=== PATIENT | female | born 1945 | race Caucasian/White ===

== ENCOUNTER 2021-05-29 10:01 | Outpatient (CLI) | payer MEDICARE, SELFPAY ==
--- NOTE | ~2021-05-29 | XR_ITS ---
EXAMINATION: XR chest 2V DATE: 05/29/2021 10:38 INDICATION: Scoliosis. TECHNIQUE: Frontal and lateral views of the chest were obtained. COMPARISON: None. FINDINGS: There is mild scarring at left lung apex. No pleural effusion or pneumothorax. The heart si ze is normal. There is a prominent right paracardial fat pad. There is 4 degrees levocurvature of tho racic spine. There is thoracic kyphosis and severe spondylosis. IMPRESSION: 1. Mild scarring at left lung apex. Reviewed, dictated and finalized at location B.
[2021-05-29 10:42] LABS: Basophils Percent Auto 0.6 % (0.2-1.2); Eosinophils Absolute Auto 0.2 K/mm3 (0-0.3); Hematocrit 42.4 % (37.0-47.0); Hemoglobin 13.7 g/dL (12.0-15.0); Immature Granulocyte Absolute 0.02 K/mm3 (0.00-0.031); Immature Granulocyte Percent A 0.3 % (0-0.5); Lymphocytes Absolute Auto 1.07 K/mm3 (0.9-3.2); Mean Corpuscular HGB Conc 32.3 g/dl (32-36); Mean Corpuscular Hemoglobin 29.3 pg (26-34); Mean Corpuscular Volume 90.6 fl (80-100); Monocytes Absolute Auto 0.5 K/mm3 (0.1-0.6); Monocytes Percent Auto 6.9 % (2.6-8.5); Neutrophils Absolute Auto 4.9 K/mm3 (1.3-6.7); Neutrophils Percent Auto 73.2 % (45.5-73.1); Platelet Count Result 237 k/mm3 (150-375); Red Blood Count 4.68 M/mm3 (4.2-5.4); White Blood Count 6.7 K/mm3 (4.5-10.0)
[2021-05-29 10:47] LABS: Add Urine Microscopic? YES; Appearance Urine Cloudy (Clear); Bilirubin Urine Negative (Negative); Blood Urine Negative (Negative); Color Urine Yellow (Yellow); Glucose Urine UA Negative (Negative); Ketones Urine Negative (Negative); Leukocyte Esterase Ur 2+ LEU/UL (Negative); Mucus Urine Few /lpf; Nitrate Urine Negative (Negative); Protein Urine 1+ mg/dL (Negative); Specific Grav Ur 1.023 (1.001-1.035); Squamous Epithelial Cell Urine Rare /hpf (Few); Urobilinogen Urine Negative mg/dL (<2.0)
[2021-05-29 10:53] LABS: Alanine Aminotransferase 38 U/L (4-35); Albumin Level 4.7 g/dL (3.5-5.1); Alkaline Phosphatase 86 U/L (38-126); Anion Gap 8 mmol/L (8-16); Aspartate Amino Transferase 44 U/L (14-36); Bilirubin,Total 0.6 mg/dL (0.2-1.3); Blood Urea Nitrogen 26 mg/dL (7-17); Calcium 9.4 mg/dL (8.4-10.2); Carbon Dioxide 28 mmol/L (22-30); Chloride 104 mmol/L (98-107); Cholesterol 193 mg/dL (0-200); Estimated Glomerular Filt Rate > 60; Glucose 105 mg/dL (65-110); HDL Direct 52 mg/dL; Potassium 4.5 mmol/L (3.4-5.0); Sodium 140 mmol/L (137-145); Triglycerides 130 mg/dL (<150)
[2021-05-29 11:04] LABS: LDL Cholesterol Direct 95 mg/dL
[2021-05-29 11:14] LABS: Hemoglobin A1C 5.7 % (<5.7)
[2021-05-29 11:24] LABS: Thyroid Stimulating Hormone 0.785 uIU/mL (0.465-4.680)
[2021-05-29 11:27] LABS: Vitamin D 25 Hydroxy 73.3 ng/mL
[2021-05-29 12:01] LABS: Folic Acid > 20.0 ng/mL (2.76->20)
[2021-06-03 12:55] LABS: Vitamin B1 41 nmol/L (8-30)
[2021-06-03 15:11] LABS: Vitamin B6 23.1 ng/mL (2.1-21.7)
[2021-06-03 23:36] LABS: Vitamin B2 10.2 nmol/L (6.2-39.0)
== END 2021-05-29 10:02 | disposition home or self-care (01) ==
PROVIDERS: PCP Internal Medicine; Visit Provider Internal Medicine
DX: M41.9 Scoliosis, unspecified (principal); Z13.29 Encounter for screening for other suspected endocrine disorder; Z79.899 Other long term (current) drug therapy; E53.8 Deficiency of other specified B group vitamins; E78.2 Mixed hyperlipidemia; Z13.1 Encounter for screening for diabetes mellitus; E55.9 Vitamin D deficiency, unspecified; R91.8 Other nonspecific abnormal finding of lung field
CPT/HCPCS: 36415; 71046; 80053; 80061; 81001; 82306; 82607; 82746; 83036; 84207; 84252; 84425; 84439; 84443; 85025

== ENCOUNTER 2021-06-03 09:58 | Outpatient (CLI) | payer MEDICARE, SELFPAY ==
[2021-06-03 11:08] LABS: Add Urine Microscopic? YES; Appearance Urine Clear (Clear); Bilirubin Urine Negative (Negative); Blood Urine Negative (Negative); Color Urine Yellow (Yellow); Glucose Urine UA Negative (Negative); Ketones Urine Negative (Negative); Leukocyte Esterase Ur Trace LEU/UL (Negative); Mucus Urine Few /lpf; Nitrate Urine Negative (Negative); Protein Urine Negative (Negative); RBC Urine 0-2 /hpf (0-2); Specific Grav Ur 1.024 (1.001-1.035); Squamous Epithelial Cell Urine Rare /hpf (Few); WBC Urine 0-3 /hpf
== END 2021-06-03 09:59 | disposition home or self-care (01) ==
LOC: ANHLAB 10:01
PROVIDERS: PCP Internal Medicine; Visit Provider Internal Medicine
DX: R82.90 Unspecified abnormal findings in urine (principal)
CPT/HCPCS: 81001

== ENCOUNTER 2021-06-26 09:21 | Outpatient (CLI) | payer MEDICARE, SELFPAY ==
[2021-06-26 10:05] LABS: Add Urine Microscopic? YES; Appearance Urine Clear (Clear); Bilirubin Urine 1+ (Negative); Blood Urine Negative (Negative); Color Urine Yellow (Yellow); Glucose Urine UA Negative (Negative); Ketones Urine Trace mg/dL (Negative); Leukocyte Esterase Ur Negative LEU/UL (Negative); Nitrate Urine Negative (Negative); Protein Urine Trace mg/dL (Negative); Specific Grav Ur >= 1.030 (1.001-1.035); Urobilinogen Urine 0.2 mg/dL (<2.0); pH Urine 5.5 (5.0-9.0)
[2021-06-26 10:24] LABS: Bacteria Urine Trace /hpf; Mucus Urine Moderate /lpf; Squamous Epithelial Cell Urine Rare /hpf (Few); WBC Urine 0-3 /hpf
== END 2021-06-26 09:22 | disposition home or self-care (01) ==
PROVIDERS: PCP Internal Medicine; Visit Provider Internal Medicine
DX: R30.0 Dysuria (principal); R82.90 Unspecified abnormal findings in urine
CPT/HCPCS: 81001; 87086

== ENCOUNTER 2021-06-29 07:21 | Outpatient (CLI) | payer MEDICARE, SELFPAY ==
--- NOTE | 2021-06-26 16:24 | PC.NURSE ---
Attempted pre-call x1 with message to call [employer] phone number back & npo after midnight tuesday and can take all medications with sip of water prior to coming to the front of the hospital.
[2021-06-26 16:39] VITALS: BMI 24.0
[2021-06-29] VITALS (12 sets, daily range): BP systolic 99–141; BP diastolic 54–75; PULSE 48–61; RESP 14–19; TEMP 36.3; O2SAT 91–97; BMI 21.2
--- NOTE | 2021-06-29 | ECHO_ITS ---
Patient Info Name: Swati Smtih Age: 76 years : 1945 Gender: Female Ht: 65 in Wt: 149 lbs BSA: 1.77 m2 HR: 57 bpm Heart Rhythm: Sinus Rhythm Technical Quality: Good Exam Date: 06/29/2021 8:28 AM Exam Location: [facility] Patient Status: Outpatient Admit Date: 06/29/2021 Staff Ordering Physician: Xavi Gonzalez MD [employer] Representative: Michelle Iraheta RDCS Attending Provider: Xavi Gonzalez MD Referring Physician: Lisa LAW; Exam Type: CA echo transesophageal Study Info Indications - MVR Complete two-dimensional, color flow and Doppler transesophageal study is performed. Summary 1. Somewhat thickened posterior mitral valve leaflet with mild annular calcium. 2. Very small amount of mitral regurgitation. 3. Mild aortic valve sclerosis with no functional stenosis planimetry valve area 2.2 cm2. 4. Normal left ventricular size and systolic function. 5. Dilated left atrium. Left Ventricle Left ventricular chamber dimension is normal. Left ventricular systolic function is normal with an ejection fraction by Biplane Method of Discs of Empty. Right Ventricle Right ventricular chamber dimension is normal. Left Atria Left atrial chamber dimension is moderately enlarged. Right Atria Right atrial chamber dimension is normal. Aortic Valve The aortic valve is trileaflet. There is mild aortic valve sclerosis. There is no aortic valve stenosis. Pulmonic Valve The pulmonic valve is normal. Mitral Valve The mitral valve has thickened leaflets. There is trace mitral valve regurgitation. Tricuspid Valve The tricuspid valve leaflets are normal. Pericardium/Pleural The pericardium appears normal. Inferior Vena Cava Not well visualized inferior vena cava with Empty collapse upon inspiration consistent with Empty right atrial pressure, Empty. Aorta The aortic root size at the sinus of Valsalva is normal. Report Signatures
--- NOTE | 2021-06-29 10:10 | SUR.PHASEII ---
discharge instruction reviewed with pt and son. Verbalized understanding, pt escorted off floor via w/c.
== END 2021-06-29 10:18 | disposition home or self-care (01) ==
LOC: ANHCPCTRAN 07:22
PROVIDERS: PCP Internal Medicine; Visit Provider Internal Medicine Cardiovascular Disease
PROC: (CPT 93312; principal; 2021-06-29 08:30)
DX: I05.9 Rheumatic mitral valve disease, unspecified (principal); I35.8 Other nonrheumatic aortic valve disorders
CPT/HCPCS: 93312; 93320; 93325; J2250; J3010

== ENCOUNTER 2021-07-13 14:57 | Outpatient (CLI) | payer MEDICARE, SELFPAY ==
--- NOTE | ~2021-07-13 | XR_ITS ---
XR chest 2V 07/13/2021 15:17 Indication: Cough and congestion Procedure: 2 view chest Comparison: 05/29/2021 Findings: Heart size normal. There is left basilar atelectasis/scarring. No focal air space disease, pulmonary edema, pleural effusion or suspected pneumothorax. No acute osseous abnormality. Impression: 1: No acute cardiopulmonary disease. Reviewed, dictated and finalized at location B. Impression: 1: No acute cardiopulmonary disease.
== END 2021-07-13 14:58 | disposition home or self-care (01) ==
LOC: ANHIMG 15:03
PROVIDERS: PCP Internal Medicine; Visit Provider Internal Medicine
DX: R05.9 Cough, unspecified (principal)
CPT/HCPCS: 71046

== ENCOUNTER → 2021-07-14 07:12 | Outpatient (CLI) | payer MEDICARE, SELFPAY ==
[2021-07-14 11:07] LABS: Influenza A QL RT-PCR Negative (Negative); Influenza B QL RT-PCR Negative (Negative); SARS-CoV-2 RNA PCR Negative
== END ==
PROVIDERS: PCP Internal Medicine; Visit Provider Internal Medicine
DX: J02.9 Acute pharyngitis, unspecified (principal); R05.8 Other specified cough; R53.83 Other fatigue; Z20.822 Contact with and (suspected) exposure to COVID-19
CPT/HCPCS: 87502; C9803; U0003; U0005

== ENCOUNTER 2021-09-11 07:42 | Outpatient (CLI) | payer MEDICARE, SELFPAY ==
--- NOTE | ~2021-09-11 | DEXA_ITS ---
Bone Density Report Name: MEAGAN SKINNER Age: 76 Sex: Female Ethnicity: White Date of : 1945 Indication: postmenopausal; screening for osteoporosis; parental hip fracture; height loss; Referring Provider: SUNNY OLEARY Study: Bone densitometry was performed. Exam Date: September 11, 2021 Accession number: [id number] Bone Density: Region BMD T-score Z-score Classification AP Spine(L1-L4) 1.002 -0.4 2.1 Normal Femoral Neck (Left) 0.681 -1.5 0.7 Osteopenia Total Hip (Left) 0.750 -1.6 0.3 Osteopenia Femoral Neck (Right) 0.696 -1.4 0.8 Osteopenia Total Hip (Right) 0.794 -1.2 0.7 Osteopenia Total Hip Mean 0.772 -1.4 0.5 Osteopenia World Health Organization criteria for BMD impression classify patients as: Normal (T-score at or above -1.0), Osteopenia (T-score between -1.0 and -2.5), or Osteoporosis (T-score at or below -2.5). 10-year Fracture Risk: FRAX not reported because: Treated for osteoporosis Clinical Information Provided by Patient: Parent has had a hip fracture Is being treated for osteoporosis Has used the following medications: Fosamax (i.e. alendronate), Vitamin D Patient maximum height was 67 Menopause Age: 34 Does not regularly consume dairy products Onset of menses at age 12 Number of children 2 Impression: The patient has low bone mass, based on the Left Total Hip T-score. The patient has risk factors, including: parental hip fracture. Discussion: It is important to ask patients whether they are taking their medications and to encourage continued and appropriate compliance with their osteoporosis therapies to reduce fracture risk. It is also important to review their risk factors and encourage appropriate calcium and vitamin D intakes, exercise, fall prevention and other lifestyle measures. Follow-Up: Consider a repeat BMD and Vertebral Fracture Assessment (VFA) exam in 2 years or sooner if medically necessary, to reassess this patient's status. Reported by: ILIANA on 09/11/2021 8:29:00 AM. Reviewed, dictated and finalized at location AHussain PA
--- NOTE | ~2021-09-11 | MM_ITS ---
EXAMINATION: MM screening chelle BI w anabel HISTORY: Screening TECHNIQUE: Craniocaudal and mediolateral oblique 3-D tomosynthesis images were obtained and synthetic 2-D images were generated. CAD analysis was submitted and interpreted. COMPARISON: No prior mammogram is available for comparison at this institution. BREAST PARENCHYMAL COMPOSITION: There are scattered areas of fibroglandular density. FINDINGS: There are focal asymmetries in the upper central aspect of the left breast. There are asymm etries in the outer aspect of the right breast on CC view. IMPRESSION: 1. Bilateral breast asymmetries. 2. Comparison to previous outside mammograms recommended. BI-RADS Category 0: Incomplete: Needs additional imaging evaluation. Reviewed, dictated and finalized at location A.
== END 2021-09-11 07:43 | disposition home or self-care (01) ==
PROVIDERS: PCP Internal Medicine; Visit Provider Internal Medicine
DX: Z12.31 Encounter for screening mammogram for malignant neoplasm of breast (principal); M85.89 Other specified disorders of bone density and structure, multiple sites; Z78.0 Asymptomatic menopausal state
CPT/HCPCS: 77063; 77067; 77080

== ENCOUNTER 2021-09-14 10:01 | Outpatient (CLI) | payer MEDICARE, SELFPAY ==
--- NOTE | 2021-09-14 13:05 | WPDPFTINT ---
PFT Procedure Performed PFT Procedure Performed Spirometry with Pre/Post Bronchodilator Plethysmography (Lung Vol) Diffusing Cap (DLCO) Flow Vol Loop PFT Interpretation Lung volumes were measured with the body plethysmography method. Lung volumes are unremarkable. Spirometry showed normal expiratory flow rates and a normal FEV1 to FVC ratio 0f 71%. Following administration of a bronchodilator, there was no significant change in the expiratory flow rates. Lung diffusion capacity is within the normal range at 90% predicted. The flow volume loop is unremarkable. Impression: Spirometry, lung volumes, and lung diffusion capacity all within the normal range.
== END 2021-09-14 10:02 | disposition home or self-care (01) ==
PROVIDERS: PCP Internal Medicine; Visit Provider Internal Medicine
DX: R05.8 Other specified cough (principal); R06.02 Shortness of breath; R05.3 Chronic cough
CPT/HCPCS: 94060; 94726; 94729

== ENCOUNTER 2021-09-17 09:40 | Outpatient (CLI) | payer MEDICARE, SELFPAY ==
[2021-09-17 11:08] LABS: Vitamin D 25 Hydroxy 94.4 ng/mL
== END 2021-09-17 09:41 | disposition home or self-care (01) ==
LOC: ANHLAB 09:45
PROVIDERS: PCP Internal Medicine; Visit Provider Internal Medicine
DX: M85.80 Other specified disorders of bone density and structure, unspecified site (principal)
CPT/HCPCS: 36415; 82306

== ENCOUNTER 2021-09-28 12:15 | Outpatient (CLI) | payer MEDICARE, SELFPAY ==
--- NOTE | ~2021-09-28 | MMUS_ITS ---
EXAMINATION: MM diagnostic chelle BI w anabel, US breast BI complete HISTORY: Follow-up breast asymmetries TECHNIQUE: Additional 3-D tomosynthesis images of the breasts were performed and synthetic 2-D images were generated. CAD analysis was submitted and interpreted. High resolution right and left complete breast ultrasound was performed. COMPARISON: 09/11/2021 BREAST PARENCHYMAL COMPOSITION: Breast composed of scattered areas of fibroglandular density FINDINGS: MAMMOGRAPHIC FINDINGS: There are persistent asymmetries laterally in the right breast on cc view and centrally in the left b reast on CC view, not definitely confirmed on MLO or mediolateral views. ULTRASOUND: Complete bilateral US of all 4 quadrants of the breasts and retroareolar region was reviewed. Right breast: At 12:00, 1 cm from the nipple, there is an oval hypoechoic mass with parallel orientat ion, no significant posterior features and no internal vascularity measuring 8 x 6 x 3 mm. At 10:00, 2 cm from the nipple there is a 6 mm cyst. Left breast ultrasound: At 12:00, 1 cm from the nipple, there is an 8 mm cyst. At 12:00, 1 cm from th e nipple there is a 5 mm cyst. IMPRESSION: 1. Probable benign complicated cysts of the right breast at 12:00, 1 cm from the nipple measuring 8 m m. No evidence for malignancy in the left breast. 2. Recommend 6 month follow-up Limited right breast ultrasound BI-RADS category 3, probably benign findings. Reviewed, dictated and finalized at location A. IMPRESSION: 1. Probable benign complicated cysts of the right breast at 12:00, 1 cm from th e nipple measuring 8 mm. No evidence for malignancy in the left breast. 2. Recommend 6 month follow-up Limited right breast ultrasound BI-RADS category 3, probably benign findings.
== END 2021-09-28 12:16 | disposition home or self-care (01) ==
PROVIDERS: PCP Internal Medicine; Visit Provider Internal Medicine
DX: R92.8 Other abnormal and inconclusive findings on diagnostic imaging of breast (principal)
CPT/HCPCS: 76641; 77062; 77066; G0279

== ENCOUNTER 2021-10-15 11:22 | Day surgery (SDC) | payer MEDICARE, SELFPAY ==
[2021-10-02 09:44] VITALS: BMI 23.8
[2021-10-15 11:45] VITALS: BMI 21.9
[2021-10-15 12:14] VITALS: BP 118/61; PULSE 76; RESP 16; TEMP 37.1; O2SAT 100
--- NOTE | 2021-10-15 12:16 | WPDANESEPPF ---
Anes - Initial Pre Proc Eval Procedure: Operation Date: 10/15/21 13:00 Proposed Procedures p Screening Colonoscopy - Senthil Lares MD Date/Time: 10/15/21 12:16 Surgeon: Senthil Lares MD Pre Op Diagnosis: History of colon polyps, family hx of colon cancer Patient Data Age: 76 Gender: F Height: 1.68 m Weight: 61.8 kg Last Vital Signs Temp 37.1 C 10/15/21 12:14 Pulse 76 10/15/21 12:14 Resp 16 10/15/21 12:14 BP 118/61 10/15/21 12:14 Pulse Ox 100 10/15/21 12:14 O2 Del Method Room Air 10/15/21 12:14 Allergies Allergy/AdvReac Type Severity Reaction Status Date / Time No Known Allergies Allergy Verified 10/15/21 11:44 Home Medications Medication Instructions Recorded Confirmed Type valacyclovir 500 mg tablet 500 mg PO BID PRN viral infection 05/29/21 10/15/21 History alendronate 70 mg tablet 70 mg PO WEEKLY #12 tabs 06/26/21 10/15/21 Rx sertraline 50 mg tablet 50 mg PO DAILY #90 tabs 06/26/21 10/15/21 Rx sodium sul 1.479 gram-potas ch See Rx Instructions PO PER PKG DIR 07/15/21 10/01/21 Rx 0.188 gram-magnes sul 0.225 gram #24 tabs tablet (Sutab) atorvastatin 40 mg tablet See Rx Instructions .Route 09/03/21 10/15/21 Rx .COMPLEX #100 tabs cholecalciferol (vitamin D3) 50 50 mcg PO DAILY 09/17/21 10/15/21 History mcg (2,000 unit) capsule Patient hx anesthesia problems: none Family hx anesthesia problems: none Results Review: All pre-operative results and documents have been reviewed as part of the pre-operative evaluation. 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 clerk drug therapy Orthostatic hypotension Osteoporosis Post-menopausal Scoliosis SOB (shortness of breath) Sore throat Vitamin D deficiency Family History Family History Mother Lymphoma Carcinoma of colon Father Heart disease Hyperlipidemia Social History Social History Smoking status: Never smoker Tobacco type: cigarettes Second hand tobacco smoke exposure: No Additional smoking assessment comments: Very remote Hx of smoking Alcohol intake: never Substance use: never Substance use type: does not use Living arrangements: alone Gender identity (if verbalized by the patient): Female 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ns: No Anes - Eval Final PreProcedure Day of Procedure 10/15/21 12:16 Patient weight: normal Heart: regular rate and rhythm Lungs: clear to auscultation Airway: Mallampati scale class II Last oral intake: >/= 8 hours ASA classification: II Emergent: no Anesthetic plan: proceed Anesthesia type and monitoring: general GIVS and standard monitoring Results Review: All pre-operative results and documents have been reviewed as part of the pre-operative evaluation. Informed Consent: The patient's anesthetic plan and its attendant risks and benefits were discussed with the patient/family/POA. Questions were solicited and answers provided to the satisfaction of the patient/family/POA.
[2021-10-15] MEDS: LACTATED RINGERS 1,000 ML 150 ML IV CONT (12:17)
--- NOTE | 2021-10-15 12:17 | PM.IMHP ---
H&P: HPI History of Present Illness Date/Time: 10/15/21 12:17 Chief Complaint: History of colon polyps. Narrative: This is a 76-year-old white female patient presents for neoplasia screening colonoscopy. Patient's family history is significant for colon polyps. Patient has a history of adenomatous colon polyp by previous colonoscopy 2016. Patient denies abdominal pain. She has had no bleeding. Current bowel habits are normal. She presents today for neoplasia screening. Review of Systems Review of Systems: Review of systems noncontributory. [facility] Past Medical History Medical History (Updated 09/30/21 @ 10:26 by Masha Goldsmith CMA) Abnormal urinalysis Anxiety Aortic stenosis, mild BMI 24.0-24.9, adult BPPV (benign paroxysmal positional vertigo) Chest pressure Colon cancer screening DJD (degenerative joint disease), multiple sites MCQUEEN (dyspnea on exertion) Dry cough Elevated LFTs Encounter for Medicare annual wellness exam Encounter to establish care FHx: colon cancer Follow up Genital herpes Hx of colonic polyps Hyperlipidemia Mitral valve prolapse Mitral valve regurgitation On group home drug therapy Orthostatic hypotension Osteoporosis Post-menopausal Scoliosis SOB (shortness of breath) Sore throat Vitamin D deficiency Family History Family History Mother Lymphoma Carcinoma of colon Father Heart disease Hyperlipidemia Social History Social History Smoking status: Never smoker Tobacco type: cigarettes Second hand tobacco smoke exposure: No Additional smoking assessment comments: Very remote Hx of smoking Alcohol intake: never Substance use: never Substance use type: does not use Living arrangements: alone Gender identity (if verbalized by the patient): Female 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ns: No Meds Home Medications and Allergies Home Medications Medication Instructions Recorded Confirmed Type valacyclovir 500 mg tablet 500 mg PO BID PRN viral infection 05/29/21 10/15/21 History alendronate 70 mg tablet 70 mg PO WEEKLY #12 tabs 06/26/21 10/15/21 Rx sertraline 50 mg tablet 50 mg PO DAILY #90 tabs 06/26/21 10/15/21 Rx sodium sul 1.479 gram-potas ch See Rx Instructions PO PER PKG DIR 07/15/21 10/01/21 Rx 0.188 gram-magnes sul 0.225 gram #24 tabs tablet (Sutab) atorvastatin 40 mg tablet See Rx Instructions .Route 09/03/21 10/15/21 Rx .COMPLEX #100 tabs cholecalciferol (vitamin D3) 50 50 mcg PO DAILY 09/17/21 10/15/21 History mcg (2,000 unit) capsule Allergies Allergy/AdvReac Type Severity Reaction Status Date / Time No Known Allergies Allergy Verified 10/15/21 11:44 Vital Signs Vital Signs - 24 hr 10/15/21 12:14 Temperature 98.7 F Pulse Rate 76 Respiratory Rate 16 Blood Pressure 118/61 Pulse Oximetry 100 Oxygen Delivery Room Air Exam Narrative: Physical exam reveals patient to be alert. Vital signs stable. HEENT exam is unremarkable. Patient is anicteric. Lungs are clear to auscultation and percussion. Heart is without murmur or extra sounds. Abdominal exam bowel sounds are present soft nontender with no organomegaly. Digital external rectal exam is normal. Assessment and Plan Assessment and plan (1) Hx of colonic polyps: Code(s): Z86.010 - Personal history of colonic polyps Status: Acute Assessment and Plan: Patient has a personal history of colon polyps most recently adenomatous polyp removed in 2017. She also has a family history of colon polyps. Plan is for surveillance colonoscopy at 5 year intervals. Further recommendations will be given after endoscopy.
[2021-10-15 13:04] VITALS: BP 95/49; PULSE 66; RESP 14; O2SAT 98
--- NOTE | 2021-10-15 13:05 | PM.IMHP ---
H&P: HPI History of Present Illness Date/Time: 10/15/21 13:05 Chief Complaint: Positive Cologuard test Narrative: this is a 76-year-old white female patient presents for screening colonoscopy. Recent Cologuard test was found to be positive. Patient reports that her current weight appetite bowel movements are normal. She denies abdominal pain. Patient has had no bleeding. Her last colonoscopy [address] Orantes was unremarkable. Patient presents today for neoplasia screening. Review of Systems Review of Systems: Review of systems noncontributory. [facility] Past Medical History Medical History Abnormal urinalysis Anxiety Aortic stenosis, mild BMI 24.0-24.9, adult BPPV (benign paroxysmal positional vertigo) Chest pressure Colon cancer screening DJD (degenerative joint disease), multiple sites MCQUEEN (dyspnea on exertion) Dry cough Elevated LFTs Encounter for Medicare annual wellness exam Encounter to establish care FHx: colon cancer Follow up Genital herpes Hx of colonic polyps Hyperlipidemia Mitral valve prolapse Mitral valve regurgitation On intermediate drug therapy Orthostatic hypotension Osteoporosis Post-menopausal Scoliosis SOB (shortness of breath) Sore throat Vitamin D deficiency Family History Family History Mother Lymphoma Carcinoma of colon Father Heart disease Hyperlipidemia Social History Social History Smoking status: Never smoker Tobacco type: cigarettes Second hand tobacco smoke exposure: No Additional smoking assessment comments: Very remote Hx of smoking Alcohol intake: never Substance use: never Substance use type: does not use Living arrangements: alone Gender identity (if verbalized by the patient): Female 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ns: No Meds Home Medications and Allergies Home Medications Medication Instructions Recorded Confirmed Type valacyclovir 500 mg tablet 500 mg PO BID PRN viral infection 05/29/21 10/15/21 History alendronate 70 mg tablet 70 mg PO WEEKLY #12 tabs 06/26/21 10/15/21 Rx sertraline 50 mg tablet 50 mg PO DAILY #90 tabs 06/26/21 10/15/21 Rx sodium sul 1.479 gram-potas ch See Rx Instructions PO PER PKG DIR 07/15/21 10/01/21 Rx 0.188 gram-magnes sul 0.225 gram #24 tabs tablet (Sutab) atorvastatin 40 mg tablet See Rx Instructions .Route 09/03/21 10/15/21 Rx .COMPLEX #100 tabs cholecalciferol (vitamin D3) 50 50 mcg PO DAILY 09/17/21 10/15/21 History mcg (2,000 unit) capsule Allergies Allergy/AdvReac Type Severity Reaction Status Date / Time No Known Allergies Allergy Verified 10/15/21 11:44 Vital Signs Vital Signs - 24 hr 10/15/21 12:14 Temperature 98.7 F Pulse Rate 76 Respiratory Rate 16 Blood Pressure 118/61 Pulse Oximetry 100 Oxygen Delivery Room Air Exam Narrative: Physical exam reveals patient to be alert. Vital signs stable. HEENT exam is unremarkable. Patient is anicteric. Lungs are clear to auscultation and percussion. Heart is without murmur or extra sounds. Abdominal exam bowel sounds are present soft nontender with no organomegaly. Digital external rectal exam is normal. Assessment and Plan Assessment and plan (1) Positive colorectal cancer screening using Cologuard test: Code(s): R19.5 - Other fecal abnormalities Status: Acute Assessment and Plan: Patient had a Cologuard test that was positive. Plan for screening colonoscopy at this time. Further recommendations will be given afterwards.
[2021-10-15 13:14] VITALS: BP 95/61; PULSE 62; RESP 16; O2SAT 98
--- NOTE | 2021-10-15 13:18 | WPDANESPN ---
Anes - Prog Note Post-Op Date/Time: 10/15/21 13:18 Cardiovascular status: normal Respiratory status: normal Airway patency: baseline Mental status: baseline Post-Op hydration status: normal Vital Signs: Last Vital Signs Temp 37.1 C 10/15/21 12:14 Pulse 66 10/15/21 13:04 Resp 14 10/15/21 13:04 BP 95/49 L 10/15/21 13:04 Pulse Ox 98 10/15/21 13:04 O2 Del Method Room Air 10/15/21 13:04 Pain Score (VAS): 0/10 I/O: Intake & Output 10/14/21 10/15/21 10/15/21 23:59 07:59 15:59 Intake Total 300 Balance 300 Patient Feedback: Patient satisfied with anesthetic care.
[2021-10-15 13:24] VITALS: BP 105/65; PULSE 58; RESP 14; O2SAT 98
== END 2021-10-15 13:40 | disposition home or self-care (01) ==
PROVIDERS: PCP Internal Medicine; Visit Provider Internal Medicine Gastroenterology
PROC: 0DJD8ZZ Inspection of Lower Intestinal Tract, Via Natural or Artificial Opening Endoscopic (ICD-10-PCS; CPT 45378; principal; 2021-10-15 13:00)
DX: Z86.010 Personal history of colon polyps (principal)
CPT/HCPCS: 45378

== ENCOUNTER 2021-11-06 09:04 | Outpatient (CLI) | payer MEDICARE, SELFPAY ==
[2021-11-06 09:55] LABS: Hemoglobin A1C 5.7 % (<5.7)
[2021-11-06 09:58] LABS: Alanine Aminotransferase 105 U/L (6-35); Albumin Level 4.3 g/dL (3.5-5.1); Alkaline Phosphatase 144 U/L (38-126); Anion Gap 10 mmol/L (8-16); Aspartate Amino Transferase 71 U/L (14-36); Bilirubin,Total 0.7 mg/dL (0.2-1.3); Blood Urea Nitrogen 26 mg/dL (7-17); Carbon Dioxide 26 mmol/L (22-30); Chloride 103 mmol/L (98-107); Cholesterol 152 mg/dL (0-200); Estimated Glomerular Filt Rate > 60; Glucose 102 mg/dL (65-110); HDL Direct 48 mg/dL; Potassium 4.3 mmol/L (3.4-5.0); Sodium 139 mmol/L (137-145); Triglycerides 109 mg/dL (<150)
[2021-11-06 10:03] LABS: Appearance Urine Clear (Clear); Bilirubin Urine Negative (Negative); Blood Urine Negative (Negative); Color Urine Yellow (Yellow); Glucose Urine UA Negative (Negative); Ketones Urine Trace mg/dL (Negative); Leukocyte Esterase Ur Trace LEU/UL (Negative); Nitrate Urine Negative (Negative); Protein Urine Negative (Negative); pH Urine 6.5 (5.0-9.0)
[2021-11-06 10:10] LABS: LDL Cholesterol Direct 75 mg/dL
[2021-11-06 10:14] LABS: Bacteria Urine Trace /hpf; Mucus Urine Rare /lpf; RBC Urine 0-2 /hpf (0-2); Squamous Epithelial Cell Urine Rare /hpf (Few); WBC Urine 0-3 /hpf
[2021-11-06 10:28] LABS: Add Urine Microscopic? YES
[2021-11-10 21:41] LABS: Apolipoprotein B 81 mg/dL (<90)
== END 2021-11-06 09:05 | disposition home or self-care (01) ==
PROVIDERS: PCP Internal Medicine; Visit Provider Internal Medicine
DX: E78.2 Mixed hyperlipidemia (principal); Z79.899 Other long term (current) drug therapy; Z13.1 Encounter for screening for diabetes mellitus
CPT/HCPCS: 36415; 80053; 80061; 81001; 82172; 83036

== ENCOUNTER 2021-11-10 09:14 | Outpatient (CLI) | payer MEDICARE, SELFPAY ==
[2021-11-10 10:48] LABS: Hepatitis B Surface Antigen Negative (Negative)
[2021-11-10 10:54] LABS: HAV RESULT Negative (Negative); Hepatitis B Core IgM Result Negative (Negative)
[2021-11-10 11:06] LABS: Hepatitis C Virus Antibody Negative (Negative)
[2021-11-12 16:23] LABS: GGT 98 U/L (3-65)
[2021-11-12 22:02] LABS: Mitochondrial (M2) Ab (IgG) <=20.0 U (<=20.0)
== END 2021-11-10 09:15 | disposition home or self-care (01) ==
PROVIDERS: PCP Internal Medicine; Visit Provider Internal Medicine
DX: R79.89 Other specified abnormal findings of blood chemistry (principal)
CPT/HCPCS: 36415; 80074; 82977; 83520; 86038

== ENCOUNTER → 2021-11-16 08:45 | Outpatient (CLI) | payer MEDICARE, SELFPAY ==
--- NOTE | ~2021-11-16 | US_ITS ---
EXAMINATION: US abdomen limited DATE: 11/16/2021 09:04 INDICATION: Abnormal liver function tests. TECHNIQUE: Multiple grayscale and Doppler ultrasound images of the abdomen were obtained. COMPARISON: None FINDINGS: The visualized portions of the head, body, and tail of the pancreas are normal. There is a 19 mm cyst in the liver. There is no liver surface nodularity. There is normal flow in main portal ve in. The gallbladder is normal in size. No gallstones or gallbladder wall thickening. There was no son ographic Gonzalez sign. The common duct is normal and measures 5 mm. IMPRESSION: 1. No etiology for abnormal liver function tests. Reviewed, dictated and finalized at location A.
== END ==
PROVIDERS: PCP Internal Medicine; Visit Provider Internal Medicine
DX: R79.89 Other specified abnormal findings of blood chemistry (principal); K76.89 Other specified diseases of liver
CPT/HCPCS: 76705

== ENCOUNTER 2022-02-10 09:48 | Outpatient (CLI) | payer MEDICARE, SELFPAY ==
[2022-02-10 10:19] LABS: Basophils Percent Auto 0.6 % (0.2-1.2); Eosinophils Absolute Auto 0.2 K/mm3 (0-0.3); Eosinophils Percent Auto 2.5 % (0-4.4); Hemoglobin 13.2 g/dL (12.0-15.0); Immature Granulocyte Absolute 0.02 K/mm3 (0.00-0.031); Immature Granulocyte Percent A 0.3 % (0-0.5); Lymphocytes Absolute Auto 1.18 K/mm3 (0.9-3.2); Lymphocytes Percent Auto 18.2 % (18.3-44.2); Mean Corpuscular Hemoglobin 29.3 pg (26-34); Mean Corpuscular Volume 88.7 fl (80-100); Mean Platelet Volume 9.8 fl (7.4-10.4); Monocytes Absolute Auto 0.4 K/mm3 (0.1-0.6); Monocytes Percent Auto 6.6 % (2.6-8.5); Neutrophils Absolute Auto 4.7 K/mm3 (1.3-6.7); Neutrophils Percent Auto 71.8 % (45.5-73.1); Platelet Count Result 246 k/mm3 (150-375); Red Blood Count 4.51 M/mm3 (4.2-5.4); Red Cell Distribution Width 14.6 % (11.5-14.5); White Blood Count 6.5 K/mm3 (4.5-10.0)
[2022-02-10 10:30] LABS: Alanine Aminotransferase 86 U/L (6-35); Albumin Level 4.6 g/dL (3.5-5.1); Alkaline Phosphatase 105 U/L (38-126); Aspartate Amino Transferase 62 U/L (14-36); Bilirubin,Total 0.6 mg/dL (0.2-1.3)
[2022-02-15 14:44] LABS: GGT 62 U/L (3-65)
== END 2022-02-10 09:49 | disposition home or self-care (01) ==
PROVIDERS: PCP Internal Medicine; Visit Provider Internal Medicine
DX: R42 Dizziness and giddiness (principal); Z79.899 Other long term (current) drug therapy; R79.89 Other specified abnormal findings of blood chemistry
CPT/HCPCS: 36415; 80076; 82977; 85025

== ENCOUNTER 2022-03-17 11:04 | Emergency (ER) | payer MEDICARE, SELFPAY ==
[2022-03-17] VITALS (16 sets, daily range): BP systolic 106–126; BP diastolic 42–68; PULSE 61–71; RESP 16–27; O2SAT 95–100
--- NOTE | ~2022-03-17 | XR_ITS ---
EXAMINATION: XR chest 1V DATE: 03/17/2022 11:56 INDICATION: Fall. TECHNIQUE: A single frontal view of the chest was obtained. COMPARISON: Chest 2 views 07/13/2021 FINDINGS: There is mild scarring at the lung apices. No pleural effusion or pneumothorax. The heart s ize is normal. IMPRESSION: 1. Stable mild scarring at the lung apices. Reviewed, dictated and finalized at location A. ISHING SPECIALIST
--- NOTE | ~2022-03-17 | CT_ITS ---
EXAMINATION: CT brain wo con DATE: 03/17/2022 11:55 INDICATION: Syncope. TECHNIQUE: Computed tomography (CT) of the head was performed without intravenous contrast. The mA wa s adjusted according to patient size. Iterative reconstruction technique was employed. The dose-lengt h product was 529.67 mGy-cm. COMPARISON: None FINDINGS: There is no intracranial hemorrhage, acute infarction, or abnormal intracranial mass lesion . There are scattered areas of low attenuation in the cerebral white matter. The ventricles are norm al in size. The orbits are normal. There is mild mucosal thickening in the ethmoid sinuses. The masto id air cells are normal. IMPRESSION: 1. Mild nonspecific cerebral white matter disease, which likely represents chronic small vessel ische yulisa disease. Reviewed, dictated and finalized at location A. BER MAGISTRATE IMPRESSION: 1. 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
--- NOTE | 2022-03-17 11:17 | ECG_ITS ---
Measurements Intervals [place] Rate: 61 P: 63 RI: 149 QRS: 38 QRSD: 84 T: 66 QT: 379 QTc: 385 Interpretive Statements SINUS RHYTHM MODERATE ST DEPRESSION [0.05+ mV ST DEPRESSION] NO PREVIOUS ECG AVAILABLE FOR COMPARISON Electronically Signed On 03-17-2022 16:14:08 [employer] by Bakari Mercado M.D.
--- NOTE | 2022-03-17 11:23 | ED.GENADULT ---
HPI - General Adult General Chief complaint: Syncope Stated complaint: syncope Time Seen by Provider: 03/17/22 11:06 Source: RN notes reviewed History of Present Illness HPI narrative: Patient presents emergency department from PCPs office for syncopal episode. Patient states she had gone to the gym this morning as per her normal she states that she had been working out with some arm weights and she states that her arms did feel little heavier than normal she did not feel quite as strong she states she had put the weights down and then walked in the pool which is normal for her states she walked her normal amount of laps and then she went into the sauna for 5 minutes after being in the sun as she got nonchanging and was walking to her car she is when she got to her car she was laying on the cart talking to someone she began to feel lightheaded and had a syncopal episode when she fell to the ground she did bump her head when she fell but denies any complaints of headache she had woken up and gone to her PCPs office and was referred to the ER for further evaluation she denies any vision changes, chest pain shortness of breath abdominal pain nausea vomiting unilateral numbness or weakness or any other symptoms Related Data Home Medications Medication Instructions Recorded Confirmed cholecalciferol (vitamin D3) 50 50 mcg PO DAILY 09/17/21 02/11/22 mcg (2,000 unit) capsule multivitamin 1 tablet PO DAILY 02/10/22 02/11/22 vitamin B complex 1 tablet PO DAILY 02/10/22 02/11/22 Allergies Allergy/AdvReac Type Severity Reaction Status Date / Time No Known Allergies Allergy Verified 03/17/22 13:11 Review of Systems Review of Systems: Gen.: Denies fevers or chills or recent illness Eyes: Denies eye pain or visual change ENT: Denies facial pain Respiratory: Denies shortness of breath or cough CV: See HPI GI: Denies abdominal pain nausea, emesis Musculoskeletal: Denies back pain or muscle pain Neuro: Denies numbness, tingling, weakness or focal weakness Skin: Denies rash Except as documented, all other systems reviewed and negative PMF Past Medical History Medical History Abnormal urinalysis Anxiety Aortic stenosis, mild BMI 21.0-21.9, adult BMI 22.0-22.9, adult BMI 24.0-24.9, adult BPPV (benign paroxysmal positional vertigo) Chest pressure Colon cancer screening Dizziness DJD (degenerative joint disease), multiple sites MCQUEEN (dyspnea on exertion) Dry cough Elevated LFTs Encounter for Medicare annual wellness exam Encounter for routine adult health examination with abnormal findings Encounter to establish care FHx: colon cancer Follow up Genital herpes Hx of colonic polyps Hyperlipidemia Memory impairment Mitral valve prolapse Mitral valve regurgitation Nightmares On [facility] drug therapy Orthostatic hypotension Osteoporosis Post-menopausal Scoliosis SOB (shortness of breath) Sore throat Vitamin D deficiency Family History Family History Mother Lymphoma Carcinoma of colon Father Heart disease Hyperlipidemia Social History Social History Smoking status: Never smoker Tobacco type: cigarettes Second hand tobacco smoke exposure: No Additional smoking assessment comments: Very remote Hx of smoking Alcohol intake: never Substance use: never Substance use type: does not use Lack of Transportation: No Lack of Food: Never True Current Housing: I Have Housing Concerned About Future Housing: No Difficulty Paying Gas/Electric Bills: No Difficulty Paying for Meds: No Currently Unemployed: No Education: Associate Degree Difficulty w/ Childcare or Family Care: No Living arrangements: alone Occupation/Education: retired Gender identity (if verbalized by the patient): Female 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
[2022-03-17] MEDS: SODIUM CHLORIDE 0.9% IV 1,000 ML 999 ML IV CONT (11:37)
[2022-03-17 11:40] LABS: Basophils Percent Auto 0.4 % (0.2-1.2); Eosinophils Absolute Auto 0.1 K/mm3 (0-0.3); Eosinophils Percent Auto 0.9 % (0-4.4); Hematocrit 39.7 % (37.0-47.0); Immature Granulocyte Absolute 0.04 K/mm3 (0.00-0.031); Immature Granulocyte Percent A 0.5 % (0-0.5); Lymphocytes Absolute Auto 0.86 K/mm3 (0.9-3.2); Lymphocytes Percent Auto 10.1 % (18.3-44.2); Mean Corpuscular HGB Conc 32.7 g/dl (32-36); Mean Corpuscular Hemoglobin 29.7 pg (26-34); Mean Corpuscular Volume 90.8 fl (80-100); Mean Platelet Volume 9.7 fl (7.4-10.4); Monocytes Absolute Auto 0.4 K/mm3 (0.1-0.6); Monocytes Percent Auto 4.9 % (2.6-8.5); Neutrophils Absolute Auto 7.1 K/mm3 (1.3-6.7); Neutrophils Percent Auto 83.2 % (45.5-73.1); Platelet Count Result 247 k/mm3 (150-375); Red Blood Count 4.37 M/mm3 (4.2-5.4); Red Cell Distribution Width 14.6 % (11.5-14.5); White Blood Count 8.5 K/mm3 (4.5-10.0)
[2022-03-17 11:55] LABS: Alanine Aminotransferase 69 U/L (6-35); Alkaline Phosphatase 97 U/L (38-126); Anion Gap 5 mmol/L (8-16); Aspartate Amino Transferase 49 U/L (14-36); Bilirubin,Total 0.6 mg/dL (0.2-1.3); Blood Urea Nitrogen 26 mg/dL (7-17); Calcium 8.9 mg/dL (8.4-10.2); Carbon Dioxide 29 mmol/L (22-30); Chloride 106 mmol/L (98-107); Estimated CRCL calculation 48 ml/min; Estimated Glomerular Filt Rate > 60; Glucose 105 mg/dL (65-110); Potassium 4.2 mmol/L (3.4-5.0); Sodium 140 mmol/L (137-145)
[2022-03-17 12:05] LABS: Troponin I < 0.012 ng/mL (0.000-0.034)
[2022-03-17 12:45] LABS: INR 1.1; Prothrombin Time 13.5 Seconds (11.1-14.7)
[2022-03-17 12:46] LABS: Partial Thromboplastin Time 29.5 SECONDS (22.3-36.8)
[2022-03-17 13:11] LABS: Influenza A QL RT-PCR Negative (Negative); Influenza B QL RT-PCR Negative (Negative); SARS-CoV-2 RNA PCR Negative
--- NOTE | 2022-03-17 14:16 | ECG_ITS ---
Measurements Intervals [place] Rate: 61 P: 60 [place]: 150 QRS: 11 QRSD: 88 T: 51 QT: 377 QTc: 381 Interpretive Statements SINUS RHYTHM MODERATE ST DEPRESSION [0.05+ mV ST DEPRESSION] COMPARED TO ECG 03/17/2022 11:13:34 NO SIGNIFICANT CHANGES Electronically Signed On 03-17-2022 16:14:58 EXHIBIT TECHNICIAN by Bakari Mercado M.D.
[2022-03-17 14:54] LABS: Troponin I < 0.012 ng/mL (0.000-0.034)
--- NOTE | 2022-03-17 15:06 | ECG_ITS ---
Measurements Intervals [place] Rate: 58 P: 59 [place]: 150 QRS: 21 QRSD: 88 T: 63 QT: 401 QTc: 397 Interpretive Statements SINUS BRADYCARDIA MODERATE ST DEPRESSION [0.05+ mV ST DEPRESSION] COMPARED TO ECG 03/17/2022 11:26:42 SINUS BRADYCARDIA NOW PRESENT Electronically Signed On 03-18-2022 15:30:40 PANTRY STEWARD/STEWARDESS by Bakari Mercado M.D.
== END 2022-03-17 16:25 | disposition home or self-care (01) ==
PROVIDERS: Emergency Provider Emergency Medicine; PCP Internal Medicine
DX: R55 Syncope and collapse (principal); R00.1 Bradycardia, unspecified; Z20.822 Contact with and (suspected) exposure to COVID-19; F41.9 Anxiety disorder, unspecified
CPT/HCPCS: 36415; 70450; 71045; 80053; 84484; 85025; 85610; 85730; 87636; 93005; 96360; 99284; J7030

== ENCOUNTER 2022-03-25 09:03 | Outpatient (CLI) | payer MEDICARE, SELFPAY | END 2022-03-25 09:04 | disposition home or self-care (01) | LOC: ANHLAB 09:06 | PROVIDERS: PCP Internal Medicine; Visit Provider Internal Medicine Cardiovascular Disease | DX: E78.5 Hyperlipidemia, unspecified (principal); R55 Syncope and collapse | CPT/HCPCS: 36415; 82533; 84439; 84443 ==

== ENCOUNTER 2022-04-07 12:17 | Outpatient (CLI) | payer MEDICARE, SELFPAY ==
--- NOTE | 2022-04-07 | ECHO_ITS ---
Patient Info Name: Swati Smith Age: 76 years : 1945 Gender: Female Ht: 67 in Wt: 138 lbs BSA: 1.72 m2 BP: 137 / 70 mmHg Heart Rhythm: Sinus Rhythm Exam Date: 04/07/2022 1:11 PM Exam Location: [facility] Patient Status: Outpatient Admit Date: 04/07/2022 Staff Ordering Physician: Xavi Gonzalez MD Surveillance Operator: Chavo Gonzalez, MICHAEL, RT Attending Provider: Xavi Gonzalez MD Referring Physician: Lisa LAW; Exam Type: CA echo doppler color flow Study Info Indications R55 - Syncope and collapse I34.8 - Other nonrheumatic mitral valve disorders I35.0 - Nonrheumatic aortic (valve) stenosis I34.0 - Nonrheumatic mitral (valve) insufficiency Complete two-dimensional, color flow and Doppler transthoracic echocardiogram is performed. Strain analysis performed. Summary 1. Complete two-dimensional, color flow and Doppler transthoracic echocardiogram is performed. 2. Left ventricular chamber dimension is normal. 3. Left ventricular systolic function is normal, estimated at 60-65%. 4. The left ventricular diastolic function is grade I diastolic dysfunction. 5. Right ventricular systolic function is normal. 6. Left atrial chamber dimension is moderately enlarged. 7. There is mild aortic valve regurgitation. 8. The mitral valve annulus is mildly calcified. 9. There is moderate mitral valve regurgitation. 10. There is mild tricuspid valve regurgitation. 11. There is mild pulmonic regurgitation. Left Ventricle Left ventricular chamber dimension is normal. Left ventricular systolic function is normal, estimated at 60-65%. There is no increased left ventricular wall thickness. The left ventricular diastolic function is grade I diastolic dysfunction. Global longitudinal strain is normal at -20 %. Right Ventricle Right ventricular chamber dimension is normal. Right ventricular systolic function is normal. Left Atria Left atrial chamber dimension is moderately enlarged. Right Atria Right atrial chamber dimension is normal. Atrial Septum Intact interatrial septum visualized by color flow imaging. Aortic Valve The aortic valve is probable trileaflet. There is no aortic valve stenosis. There is mild aortic valve regurgitation. Pulmonic Valve The pulmonic valve is not well visualized. There is mild pulmonic regurgitation. Mitral Valve There is moderate mitral valve regurgitation. The mitral valve annulus is mildly calcified. Tricuspid Valve There is mild tricuspid valve regurgitation. Pericardium/Pleural There is no pericardial effusion. Inferior Vena Cava Dilated inferior vena cava with <50% collapse upon inspiration consistent with elevated right atrial pressure, 15 mmHg. Aorta The aortic root size at the sinus of Valsalva is normal. Left Ventricular Outflow Tract Name Value Normal LVOT 2D LVOT Diameter 2.0 cm LVOT Doppler LVOT Peak Gradient 4 mmHg LVOT Mean Gradient 2 mmHg LVOT VTI 26 cm LVOT VTI/AV VTI Ratio 0.7 LVOT Mariah
== END 2022-04-07 12:18 | disposition home or self-care (01) ==
PROVIDERS: PCP Internal Medicine; Visit Provider Internal Medicine Cardiovascular Disease
DX: R55 Syncope and collapse (principal); I08.3 Combined rheumatic disorders of mitral, aortic and tricuspid valves
CPT/HCPCS: 93306

== ENCOUNTER 2022-06-14 08:03 | Outpatient (CLI) | payer MEDICARE, SELFPAY ==
[2022-06-14 08:34] LABS: Basophils Percent Auto 0.4 % (0.2-1.2); Eosinophils Absolute Auto 0.2 K/mm3 (0-0.3); Eosinophils Percent Auto 3.9 % (0-4.4); Hematocrit 40.5 % (37.0-47.0); Hemoglobin 13.2 g/dL (12.0-15.0); Immature Granulocyte Absolute 0.01 K/mm3 (0.00-0.031); Immature Granulocyte Percent A 0.2 % (0-0.5); Lymphocytes Percent Auto 17.4 % (18.3-44.2); Mean Corpuscular HGB Conc 32.6 g/dl (32-36); Mean Corpuscular Hemoglobin 30.1 pg (26-34); Mean Corpuscular Volume 92.3 fl (80-100); Mean Platelet Volume 9.7 fl (7.4-10.4); Monocytes Absolute Auto 0.4 K/mm3 (0.1-0.6); Monocytes Percent Auto 8.3 % (2.6-8.5); Neutrophils Absolute Auto 3.2 K/mm3 (1.3-6.7); Neutrophils Percent Auto 69.8 % (45.5-73.1); Platelet Count Result 250 k/mm3 (150-375); Red Blood Count 4.39 M/mm3 (4.2-5.4); Red Cell Distribution Width 14.6 % (11.5-14.5); White Blood Count 4.6 K/mm3 (4.5-10.0)
[2022-06-14 08:43] LABS: Alanine Aminotransferase 63 U/L (6-35); Albumin Level 4.5 g/dL (3.5-5.1); Alkaline Phosphatase 104 U/L (38-126); Anion Gap 6 mmol/L (8-16); Aspartate Amino Transferase 52 U/L (14-36); Bilirubin,Total 0.8 mg/dL (0.2-1.3); Blood Urea Nitrogen 19 mg/dL (7-17); Calcium 8.9 mg/dL (8.4-10.2); Carbon Dioxide 28 mmol/L (22-30); Chloride 105 mmol/L (98-107); Cholesterol 163 mg/dL (0-200); Estimated Glomerular Filt Rate > 60; Glucose 99 mg/dL (65-110); HDL Direct 52 mg/dL; Potassium 4.3 mmol/L (3.4-5.0); Sodium 139 mmol/L (137-145); Triglycerides 115 mg/dL (<150)
[2022-06-14 08:54] LABS: LDL Cholesterol Direct 78 mg/dL
[2022-06-14 09:13] LABS: Thyroid Stimulating Hormone 0.923 uIU/mL (0.465-4.680)
[2022-06-14 09:52] LABS: Folic Acid > 20.0 ng/mL (2.76->20)
[2022-06-17 13:27] LABS: GGT 35 U/L (3-65)
== END 2022-06-14 08:04 | disposition home or self-care (01) ==
PROVIDERS: PCP Internal Medicine; Visit Provider Internal Medicine
DX: R79.89 Other specified abnormal findings of blood chemistry (principal); Z79.899 Other long term (current) drug therapy; Z13.29 Encounter for screening for other suspected endocrine disorder; E78.5 Hyperlipidemia, unspecified; E53.8 Deficiency of other specified B group vitamins
CPT/HCPCS: 36415; 80053; 80061; 82607; 82746; 82977; 84439; 84443; 85025

== ENCOUNTER → 2022-08-26 08:07 | Outpatient (CLI) | payer MEDICARE, SELFPAY ==
--- NOTE | ~2022-08-26 | CT_ITS ---
Clinical Indication: Abnormal weight loss CT Scan of the Chest, Abdomen, and Pelvis with Contrast: Technique: Contiguous sections were acquired throughout the chest, abdomen, and pelvis after intraven ous administration of 100 cc of Omnipaque 350. Dose reduction technique was used on this scan by uti tinoing automated exposure control and iterative reconstruction technique. The dose-length product (DL P) was 486.96 mGy-cm. Findings: There is no evidence of any significant mediastinal, hilar or axillary lymphadenopathy. The mediastin al soft tissues and vascular structures appear normal. There is no evidence of pleural or pericardial effusion. 3 mm groundglass right upper lobe pulmonary nodule noted (axial image 31). No suspicious pulmonary no dule or other consolidation identified. Posterior right hepatic lobe cyst is present. The spleen, pancreas, gallbladder, adrenals and kidneys are within normal limits. There are atherosclerotic calcifications of the aorta. No lymphadenopathy . No bowel obstruction or bowel wall thickening. There is no evidence to suggest acute appendicitis. Urinary bladder is unremarkable. No pelvic mass seen. Trace ascites. Impression: Trace pelvic ascites, of uncertain clinical significance. 3 mm groundglass right upper lobe pulmonary nodule. According to Fleischner Society criteria, for a l ow-risk patient, no further follow-up required. For a high-risk patient, consider 12 month follow-up CT. Reviewed, dictated and finalized at location . Impression: Trace pelvic ascites, of uncertain clinical significance. 3 mm groundglass right upper lobe pulmonary nodule. According to Fleischner Soc iety criteria, for a low-risk patient, no further follow-up required. For a hig h-risk patient, consider 12 month follow-up CT.
--- NOTE | ~2022-08-26 | XR_ITS ---
XR cervical spine 4-5V DATE: 08/26/2022 08:30 INDICATION: Neck pain. Syncopal episode. TECHNIQUE: AP, open-mouth, lateral and flexion and extension lateral views COMPARISON: None FINDINGS: There is mild anterolisthesis at C2-3, C3-4, C4-5, C5-6 and C7-T1, partially reduced in ext ension. There is moderate degenerative disc disease at C3-4, with severe degenerative disc disease C4-5 and s evere degenerative disease at C5-6 and C6-7. C1 and C2 are normally aligned and the odontoid process is intact. No fracture or dislocation or lock ed facet is evident. There is degenerative change throughout the apophyseal joints of the cervical spine. Uncovertebral lacy int spurring is noted at C3-4 through C6-7, most prominent in the C4-5 through C6-7 region. IMPRESSION: Prominent cervical spondylosis; no fracture is detected. Reviewed, dictated and finalized at location L.
[2022-08-26 08:39] LABS: Estimated Glomerular Filt Rate > 60
== END ==
PROVIDERS: PCP Internal Medicine; Visit Provider Internal Medicine
DX: M54.2 Cervicalgia (principal); R63.4 Abnormal weight loss; R91.1 Solitary pulmonary nodule; M43.02 Spondylolysis, cervical region; R18.8 Other ascites
CPT/HCPCS: 71260; 72050; 74177; Q9967

== ENCOUNTER → 2022-09-02 12:36 | Outpatient (CLI) | payer MEDICARE, SELFPAY ==
--- NOTE | ~2022-09-02 | US_ITS ---
US abdomen limited 09/02/2022 13:03 Indication: Ascites. Procedure: High-resolution Limited ultrasound of the abdomen Comparison: CT dated 08/26/2022 Findings: Normal heterogeneous abdominal soft tissues without evidence for free fluid. Impression: 1: No ascites identified. Reviewed, dictated and finalized at location A. Impression: 1: No ascites identified.
== END ==
PROVIDERS: PCP Internal Medicine; Visit Provider Internal Medicine
DX: R18.8 Other ascites (principal)
CPT/HCPCS: 76705

== ENCOUNTER → 2022-09-20 08:39 | Outpatient (CLI) | payer MEDICARE, SELFPAY ==
--- NOTE | ~2022-09-20 | US_ITS ---
EXAMINATION: US transvaginal DATE: 09/20/2022 09:07 INDICATION: Pelvic ascites TECHNIQUE: Multiple endovaginal sonographic images of the pelvis were obtained. COMPARISON: CT, 08/26/2022 FINDINGS: The uterus measures 4.2 x 4.3 x 3.1 cm. The endometrial complex measures 2 mm. The ovaries are not visualized however no adnexal abnormality is seen. There is trace free fluid in the pelvis. IMPRESSION: 1. Trace free fluid in the pelvis, etiology and clinical significance unclear. Reviewed, dictated and finalized at location B.
== END ==
PROVIDERS: PCP Internal Medicine; Visit Provider Internal Medicine
DX: R18.8 Other ascites (principal)
CPT/HCPCS: 76830

== ENCOUNTER 2022-11-22 08:13 | Outpatient (CLI) | payer MEDICARE, SELFPAY ==
[2022-11-22 09:27] LABS: Basophils Percent Auto 0.6 % (0.2-1.2); Eosinophils Absolute Auto 0.2 K/mm3 (0-0.3); Eosinophils Percent Auto 3.8 % (0-4.4); Hematocrit 40.9 % (37.0-47.0); Hemoglobin 13.1 g/dL (12.0-15.0); Immature Granulocyte Absolute 0.01 K/mm3 (0.00-0.031); Immature Granulocyte Percent A 0.2 % (0-0.5); Lymphocytes Absolute Auto 1.05 K/mm3 (0.9-3.2); Mean Corpuscular Hemoglobin 29.6 pg (26-34); Mean Corpuscular Volume 92.5 fl (80-100); Mean Platelet Volume 9.7 fl (7.4-10.4); Monocytes Absolute Auto 0.4 K/mm3 (0.1-0.6); Monocytes Percent Auto 7.6 % (2.6-8.5); Neutrophils Absolute Auto 3.6 K/mm3 (1.3-6.7); Neutrophils Percent Auto 67.8 % (45.5-73.1); Platelet Count Result 220 k/mm3 (150-375); Red Blood Count 4.42 M/mm3 (4.2-5.4); Red Cell Distribution Width 13.5 % (11.5-14.5); White Blood Count 5.3 K/mm3 (4.5-10.0)
[2022-11-22 09:39] LABS: Alanine Aminotransferase 68 U/L (6-35); Albumin Level 4.4 g/dL (3.5-5.1); Alkaline Phosphatase 88 U/L (38-126); Anion Gap 5 mmol/L (8-16); Aspartate Amino Transferase 56 U/L (14-36); Bilirubin,Total 0.7 mg/dL (0.2-1.3); Blood Urea Nitrogen 17 mg/dL (7-17); Calcium 9.2 mg/dL (8.4-10.2); Carbon Dioxide 30 mmol/L (22-30); Chloride 103 mmol/L (98-107); Cholesterol 171 mg/dL (0-200); Estimated Glomerular Filt Rate > 60; Glucose 98 mg/dL (65-110); HDL Direct 52 mg/dL; Potassium 4.6 mmol/L (3.4-5.0); Sodium 138 mmol/L (137-145); Triglycerides 116 mg/dL (<150)
[2022-11-22 09:49] LABS: LDL Cholesterol Direct 85 mg/dL; Prealbumin 22.4 mg/dL (17.6-36.0)
== END 2022-11-22 08:14 | disposition home or self-care (01) ==
LOC: ANHLAB 08:15
PROVIDERS: PCP Internal Medicine; Visit Provider Internal Medicine
DX: E78.5 Hyperlipidemia, unspecified (principal); R63.4 Abnormal weight loss; Z79.899 Other long term (current) drug therapy
CPT/HCPCS: 36415; 80053; 80061; 84134; 85025

== ENCOUNTER 2023-01-11 08:51 | Outpatient (CLI) | payer MEDICARE, SELFPAY ==
[2023-01-11 09:52] LABS: Alanine Aminotransferase 24 U/L (6-35); Albumin Level 4.4 g/dL (3.5-5.1); Alkaline Phosphatase 84 U/L (38-126); Aspartate Amino Transferase 32 U/L (14-36); Bilirubin,Total 0.8 mg/dL (0.2-1.3); Cholesterol 266 mg/dL (0-200); HDL Direct 58 mg/dL; Triglycerides 114 mg/dL (<150)
[2023-01-11 09:59] LABS: LDL Cholesterol Direct 145 mg/dL
[2023-01-14 13:45] LABS: GGT 20 U/L (3-65)
== END 2023-01-11 08:52 | disposition home or self-care (01) ==
PROVIDERS: PCP Internal Medicine; Visit Provider Internal Medicine
DX: R79.89 Other specified abnormal findings of blood chemistry (principal); E78.2 Mixed hyperlipidemia
CPT/HCPCS: 36415; 80061; 80076; 82977

== ENCOUNTER 2023-03-31 23:11 | Observation (INO) | payer MEDICARE, SELFPAY ==
--- NOTE | ~2023-03-31 | CT_ITS ---
Non-contrast Head CT History: Status post fall COMPARISON: 03/17/2022 Technique: Axial non-contrast imaging of the brain was performed. Dose reduction technique was used on this scan by utilizing automated exposure control and iterative reconstruction technique. The dose -length product (DLP) was 681.00 mGy-cm. Findings: There is no evidence of intracranial hemorrhage, mass lesion, or acute infarct. Brain par enchyma appears normal. The ventricles and subarachnoid spaces are normal in size. The calvarium ap pears normal. The visualized paranasal sinuses and mastoid air cells are clear. Impression: No significant abnormality seen. Reviewed, dictated and finalized at location . NE PHARMACOLOGY TECHNICIAN Impression: No significant abnormality seen.
--- NOTE | ~2023-03-31 | CT_ITS ---
Noncontrast CT scan of the cervical spine Technique: Multiple contiguous axial [address] images of the cervical spine were obtained and rec onstructed in 2D sagittal and coronal planes on the acquisition scanner. Dose reduction technique was used on this scan by utilizing automated exposure control, adjustment of the mA and/or kV according to patient size. The dose-length product (DLP) was 189.00 mGy-cm. Clinical History: Pain Findings: There is a fracture near the base of the odontoid, probably type II fracture, with mild pos terior displacement of the superior fracture fragment approximately 4 mm. There is focal irregularity of the anterior arch of C1, unclear whether this is chronic change versus a focal acute fracture. There is advanced degenerative disc narrowing at C5-C6 and C6-C7. There is moderate degenerative disc narrowing at C3-C4 and C4-C5. There is facet arthropathy throughout the cervical spine. There is pro bable multilevel neural foraminal narrowing, especially at C4-C5, C5-C6, and C6-C7. No prevertebral soft tissue swelling. Impression: Type II odontoid fracture, as detailed above, with mild posterior displacement of the superior fractu re fragment. Focal irregularity at the anterior arch of C1 in the midline. It is unclear whether this represents c hronic remodeling/degenerative change versus possibly focal acute fracture. Degenerative change, as above. Reviewed, dictated and finalized at [facility]. RUCTIONAL DEVELOPER Impression: Type II odontoid fracture, as detailed above, with mild posterior displacement of the superior fracture fragment. Focal irregularity at the anterior arch of C1 in the midline. It is unclear whe ther this represents chronic remodeling/degenerative change versus possibly foc al acute fracture. Degenerative change, as above.
--- NOTE | ~2023-03-31 | MR_ITS ---
EXAMINATION: MR cervical spine wo con DATE: 04/01/2023 08:08 INDICATION: Type II odontoid fracture with retrolisthesis TECHNIQUE: Magnetic resonance imaging (MRI) of the cervical spine was performed without intravenous c ontrast. Sequences included sagittal T2-weighted FSE, sagittal T2-weighted FS FSE, sagittal T1-weight ed FSE, axial MERGE and axial T2-weighted FSE. COMPARISON: Cervical spine CT dated 03/31/2023 and radiographs dated 08/26/2022 FINDINGS: Again seen is a type II odontoid fracture with unchanged 3 mm posterior displacement is new since ear lier radiographs on 08/26/2022. There is no associated marrow edema and there is also no significant a ssociated prevertebral soft tissue swelling. On both of the T2-weighted sagittal images there is foca l increased central cord signal extending approximately 1.5 cm craniocaudally at the level of the fra cture. There is no significant cord swelling. Although this could represent an acute fracture the abs ence of associated edema/swelling suggests this could represent a subacute fracture. There is straigh tening of the cervical spine. Vertebral body heights are normal. There is multilevel severe disc heig ht loss at C3-C4 through C6-C7 with some associated fibrovascular degenerative endplate changes. Oneyda ow signal is otherwise unremarkable. There is moderate disc height loss at C2-C3 and from T2-T3 throu gh T5-T6 with mild disc height loss at C7-T1 and T1-T2. The following disc levels are specifically d iscussed: C2-C3: Disc is bulging with annular fissure. There is moderate bilateral uncovertebral joint osteoart hritis. There is severe bilateral facet joint osteoarthritis. There is mild bilateral neural foramina l stenosis. There is mild central canal stenosis. C3-C4: Disc is bulging. There is severe left and moderate right uncovertebral joint osteoarthritis. T here is severe bilateral facet joint osteoarthritis. There is mild right neural foraminal stenosis. T here is mild central canal stenosis. C4-C5: Posterior disc osteophyte complex. There is severe bilateral uncovertebral joint osteoarthriti s. There is severe bilateral facet joint osteoarthritis. There is mild bilateral neural foraminal juliet nosis. There is mild central canal stenosis. C5-C6: Posterior disc osteophyte complex. There is severe bilateral uncovertebral joint osteoarthriti s. There is severe left and moderate right facet joint osteoarthritis. There is mild left and moderat e to severe right neural foraminal stenosis. There is mild central canal stenosis. C6-C7: Posterior disc osteophyte complex. There is severe bilateral uncovertebral joint osteoarthriti s. There is moderate bilateral facet joint osteoarthritis. There is mild bilateral neural foraminal s tenosis. There is mild central canal stenosis. C7-T1: The disc does not extend beyond the endplate margin. There is mild left uncovertebral joint os teoarthritis. There is moderate left and severe right facet joint osteoarthritis. There is mild right neural foraminal stenosis. There is no central canal stenosis. IMPRESSION: 1. Unchanged 3 mm posterior displacement of a type II odontoid fracture. There is mild increased cord signal posterior to the fracture plane suspicious for cord contusion versus myelomalacia. There is n o significant swelling of the cord which along with the absence of appreciable marrow edema or prever tebral soft tissue swelling suggests this may be subacute. Correlate for history of prior trauma. 2. Severe cervical spondylosis. Reviewed, dictated and finalized at location A. ORT SERVICES TECH IMPRESSION: 1. Unchanged 3 mm posterior displacement of a type II odontoid fracture. There is mild increased cord signal posterior to the fracture plane suspicious for co rd contusion versus myelomalacia. There is no significant swell
[2023-03-31 23:16] VITALS: BP 147/75; PULSE 71; RESP 16; TEMP 36.6; O2SAT 100
--- NOTE | 2023-03-31 23:29 | ECG_ITS ---
Measurements Intervals [place] Rate: 65 P: 63 PA: 162 QRS: 7 QRSD: 90 T: 57 QT: 369 QTc: 384 Interpretive Statements SINUS RHYTHM POSSIBLE LEFT ATRIAL ENLARGEMENT [-0.1mV P-WAVE IN V1/V2] MILD ST SEGMENT DEPRESSION, CONSIDER ISCHEMIA ABNORMAL ECG COMPARED TO ECG 03/17/2022 15:06:50 NO DIFFERENCE Electronically Signed On 04-01-2023 12:34:49 BUTTON SPINDLER by Nahum Davenport M.D.
[2023-03-31 23:31] VITALS: BP 155/83; PULSE 70; RESP 19; O2SAT 98
[2023-03-31 23:36] VITALS: BP 155/83; PULSE 66; RESP 17; O2SAT 99
[2023-03-31 23:44] LABS: Basophils Percent Auto 0.6 % (0.2-1.2); Eosinophils Absolute Auto 0.3 K/mm3 (0-0.3); Eosinophils Percent Auto 4.8 % (0-4.4); Hematocrit 37.9 % (37.0-47.0); Hemoglobin 12.4 g/dL (12.0-15.0); Immature Granulocyte Absolute 0.02 K/mm3 (0.00-0.031); Immature Granulocyte Percent A 0.3 % (0-0.5); Lymphocytes Absolute Auto 1.35 K/mm3 (0.9-3.2); Lymphocytes Percent Auto 21.1 % (18.3-44.2); Mean Corpuscular HGB Conc 32.7 g/dl (32-36); Mean Corpuscular Hemoglobin 29.3 pg (26-34); Mean Corpuscular Volume 89.6 fl (80-100); Mean Platelet Volume 9.6 fl (7.4-10.4); Monocytes Absolute Auto 0.7 K/mm3 (0.1-0.6); Monocytes Percent Auto 10.3 % (2.6-8.5); Neutrophils Percent Auto 62.9 % (45.5-73.1); Platelet Count Result 299 k/mm3 (150-375); Red Blood Count 4.23 M/mm3 (4.2-5.4); Red Cell Distribution Width 13.6 % (11.5-14.5); White Blood Count 6.4 K/mm3 (4.5-10.0)
[2023-03-31 23:46] VITALS: BP 142/76; PULSE 64; RESP 15; O2SAT 98
[2023-03-31 23:56] LABS: Alanine Aminotransferase 24 U/L (6-35); Albumin Level 4.6 g/dL (3.5-5.1); Alkaline Phosphatase 85 U/L (38-126); Anion Gap 7 mmol/L (8-16); Aspartate Amino Transferase 36 U/L (14-36); Bilirubin,Total 0.6 mg/dL (0.2-1.3); Blood Urea Nitrogen 31 mg/dL (7-17); Calcium 9.8 mg/dL (8.4-10.2); Carbon Dioxide 28 mmol/L (22-30); Chloride 104 mmol/L (98-107); Estimated CRCL calculation 47 ml/min; Estimated Glomerular Filt Rate > 60; Glucose 113 mg/dL (65-110); Potassium 3.5 mmol/L (3.4-5.0); Sodium 139 mmol/L (137-145)
[2023-04-01] VITALS (21 sets, daily range): BP systolic 110–159; BP diastolic 53–88; PULSE 57–88; RESP 12–24; TEMP 36.6; O2SAT 95–100
--- NOTE | 2023-04-01 00:31 | ED.FALL ---
HPI - Fall General Chief Complaint: Fall Stated Complaint: fall- hit wall Time Seen by Provider: 04/01/23 00:29 Source: patient and family (son) Limitations: no limitations History of Present Illness HPI Narrative: 77-year-old female presents after having a nightmare and while sleeping jumping on the bed and striking her head. She states the movements/getting out of bed during dreams has occurred before. Patient awoke with acute onset head pain Lying on the ground. Not on anticoagulation. immediately afterwards she notes that her arms were numb and she could not move her bilateral legs. she states it was as if they were still asleep. This resolved though. she is complaining of a headache as well as neck pain. No epistaxis. Also some pain along her face/nose where she has an abrasion. No chest pain. Related Data Home Medications Medication Instructions Recorded Confirmed cholecalciferol (vitamin D3) 50 50 mcg PO DAILY 09/17/21 11/30/22 mcg (2,000 unit) capsule multivitamin 1 tablet PO DAILY 02/10/22 11/30/22 biotin 500 mcg BYMOUTH 06/23/22 11/30/22 inulin 2 gram chewable tablet 5 g PO BID 06/23/22 11/30/22 (Fiber Gummies) midodrine 5 mg tablet 5 mg PO TID 08/18/22 11/30/22 Allergies Allergy/AdvReac Type Severity Reaction Status Date / Time [id number] Reductase Allergy Intermediate elevated Verified 03/31/23 23:37 Inhibitor liver enzymes [facility] Past Medical History Medical History (Updated 04/01/23 @ 07:40 by Cari Cuellar MD) Abnormal urinalysis Anxiety Aortic stenosis, mild BMI 21.0-21.9, adult BMI 22.0-22.9, adult BMI 24.0-24.9, adult BPPV (benign paroxysmal positional vertigo) Cervicalgia Changing skin lesion Chest pressure Colon cancer screening Dizziness DJD (degenerative joint disease), multiple sites MCQUEEN (dyspnea on exertion) Dry cough Elevated LFTs Encounter for Medicare annual wellness exam Encounter for routine adult health examination with abnormal findings Encounter for routine adult health examination without abnormal findings Encounter to establish care FHx: colon cancer Follow up Genital herpes Hx of colonic polyps Hyperlipidemia Infection of left earlobe Itchy scalp Loss of smell Loss of taste Memory impairment Mitral valve prolapse Mitral valve regurgitation Nightmares On halfway drug therapy Orthostatic hypotension Osteoporosis Other ascites Post-menopausal Scoliosis Skin tag SOB (shortness of breath) Sore throat Unintentional weight loss Vitamin D deficiency Family History Family History (Reviewed 11/30/22 @ 10:53 by Masha Goldsmith [facility]) Mother Lymphoma Carcinoma of colon Father Heart disease Hyperlipidemia Social History Social History Smoking status: Never smoker Tobacco type: cigarettes Second hand tobacco smoke exposure: No Additional smoking assessment comments: Very remote Hx of smoking Alcohol intake: never Substance use: never Substance use type: does not use Lack of Transportation: No Lack of Food: Never True Current Housing: I Have Housing Concerned About Future Housing: No Difficulty Paying Gas/Electric Bills: No Difficulty Paying for Meds: No Currently Unemployed: No Education: Associate Degree Difficulty w/ Childcare or Family Care: No Living arrangements: alone Occupation/Education: retired Gender identity (if verbalized by the patient): Female 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ns: No Exam Narrative: GENERAL: Well-appearing, well-nourished, and in no acute distress. HEAD: Normocephalic, atraumatic. EYES: Non injected, non icteric ENT: Nares clear, no rhinorrhea or epistaxis. No septal hematoma. Abrasion over nose. NECK: Tenderness to palpation. C collar placed. CHEST: Speaking in full sentences. No respiratory distress. HEART: Regular rate and rhythm. . ABDOMEN: Soft, nondistended. EXTREMITIES: Nor
[2023-04-01] MEDS: ACETAMINOPHEN 500 MG TABLET 1000 MG PO (00:44)
[2023-04-01] MEDS: ONDANSETRON INJ 4 MG/2 ML VIAL IV PUSH (01:33)
[2023-04-01] MEDS: MORPHINE SULFATE (*CRX) 4 MG/ML INJ IV PUSH (01:33)
--- NOTE | 2023-04-01 07:01 | PC.NURSE ---
MRI safety sheet completed.
--- NOTE | 2023-04-01 07:18 | PM.IMHP ---
H&P: HPI History of Present Illness Date/Time: 04/01/23 07:18 Chief Complaint: fall Narrative: I saw and examined the patient in presents of patient's son with patient permission 77 year lady with history of orthostatic hypotension, osteoporosis, present ED with a chief complaint of fall and neck pain. Patient states she had a fall about 10 30 p.m. yesterday. patient lost balance, and fell forward. Patient denied loss consciousness, but patient could move arm black for while after fall. Patient denies urinary fecal incontinence, chest pain, palpitation, abdomen pain, nausea vomiting. Patient had a fall recently, and patient stated she did not have major injury on the neck. It patient was able to move the arm labs about few minutes after the fall. Patient will brought to ED for evaluation. Upon arrival in the ED, patient was afebrile, blood pressure stable, pulse ox 100% on room air, patient was found have elevated BUN creatinine ratio 31/0.8. CT shows no acute intracranial issues, CT C-spine shows acute type 2 odontoid fracture with 3 mm retrolisthesis of the fracture fragment.? Recommend MRI of the cervical spine. Patient neck is immobilized with hard collar [facility] Past Medical History Medical History (Updated 04/01/23 @ 07:40 by Cari Cuellar MD) Abnormal urinalysis Anxiety Aortic stenosis, mild BMI 21.0-21.9, adult BMI 22.0-22.9, adult BMI 24.0-24.9, adult BPPV (benign paroxysmal positional vertigo) Cervicalgia Changing skin lesion Chest pressure Colon cancer screening Dizziness DJD (degenerative joint disease), multiple sites MCQUEEN (dyspnea on exertion) Dry cough Elevated LFTs Encounter for Medicare annual wellness exam Encounter for routine adult health examination with abnormal findings Encounter for routine adult health examination without abnormal findings Encounter to establish care FHx: colon cancer Follow up Genital herpes Hx of colonic polyps Hyperlipidemia Infection of left earlobe Itchy scalp Loss of smell Loss of taste Memory impairment Mitral valve prolapse Mitral valve regurgitation Nightmares On [facility] drug therapy Orthostatic hypotension Osteoporosis Other ascites Post-menopausal Scoliosis Skin tag SOB (shortness of breath) Sore throat Unintentional weight loss Vitamin D deficiency Family History Family History Mother Lymphoma Carcinoma of colon Father Heart disease Hyperlipidemia Social History Social History Smoking status: Never smoker Tobacco type: cigarettes Second hand tobacco smoke exposure: No Additional smoking assessment comments: Very remote Hx of smoking Alcohol intake: never Substance use: never Substance use type: does not use Lack of Transportation: No Lack of Food: Never True Current Housing: I Have Housing Concerned About Future Housing: No Difficulty Paying Gas/Electric Bills: No Difficulty Paying for Meds: No Currently Unemployed: No Education: Associate Degree Difficulty w/ Childcare or Family Care: No Living arrangements: alone Occupation/Education: retired Gender identity (if verbalized by the patient): Female 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ns: No Meds Home Medications and Allergies Home Medications Medication Instructions Recorded Confirmed Type cholecalciferol (vitamin D3) 50 50 mcg PO DAILY 09/17/21 11/30/22 History mcg (2,000 unit) capsule multivitamin 1 tablet PO DAILY 02/10/22 11/30/22 History valacyclovir 500 mg tablet 500 mg PO BID PRN viral infection 02/10/22 11/30/22 Rx #30 tabs biotin 500 mcg BYMOUTH 06/23/22 11/30/22 History inulin 2 gram chewable tablet 5 g PO BID 06/23/22 11/30/22 History (Fiber Gummies) midodrine 5 mg tablet 5 mg PO TID 08/18/22 11/30/22 History sertraline 50 mg tablet See Rx Instructions .Route 10/21/22 11/30/22 Rx .COMPLEX #90
--- NOTE | 2023-04-01 08:38 | PC.NURSE ---
pt to and from MRI without issue
[2023-04-01 09:43] LABS: Vitamin D 25 Hydroxy 62.4 ng/mL
[2023-04-01] MEDS: CHOLECALCIFEROL 1,000 UNITS TABLET 2000 UNITS PO (09:49)
[2023-04-01] MEDS: MIDODRINE HCL 2.5 MG TABLET 5 MG PO ×2 (09:49→14:00)
[2023-04-01] MEDS: ACETAMINOPHEN 325 MG TABLET 650 MG PO (11:43)
--- NOTE | 2023-04-01 13:06 | WPDNEUROSGCN ---
Assessment and Plan Assessment and plan (1) Odontoid fracture with type II morphology: Code(s): S12.110A - Anterior displaced Type II dens fracture, initial encounter for closed fracture Status: Acute Assessment and Plan: The patient is a pleasant 77-year-old female who presented to the emergency room this morning after a fall out of the bed due to a nightmare, and was found to have a C2 odontoid fracture with mild retropulsion. Patient had brief episode of not being able to move her upper and lower extremities however this completely resolved after a few minutes per patient. MRI findings reveal the fracture this is most likely subacute due to no significant bone marrow edema at the fracture site however there is T2 signal changes within the spinal cord that is likely represents cord contusion versus myelomalacia from a prior injury. Given her symptoms and story of not being able to briefly move her arms and legs, recommend continuing her hard cervical collar at all times and treat this as more of an acute fracture. The patient prefers to go home this evening with family support. She has been ambulating to use the bathroom and states she feels pretty steady on her feet. She and her son agree with this plan. I recommend the patient follow-up with us in our [place] neurosurgery office in 4-6 weeks with repeat cervical x-rays while in the hard collar. Recommend she also continue [place] collar at all times, she now has a 2nd collar to wear for showers. I have to discuss this case with my attending Dr. Zendejas, who agrees with the assessment plan. Nayely Sigala PA-C Neurosurgery Attending: Dr. Zendejas Consult date: 04/01/23 Reason for consult: C2 Odontoid fracture HPI: Swati Smith is a 77 year old female who presented to the ER today after having a fall and hitting her head. Patient reports having a nightmare and fell of bed head first while her feet were stuck in the bedding. She struck her face/head on the carpeted ground She reports briefly not being able to move her arms and legs for a few minutes with pins and needles feeling throughout. She was able to crawl to the bathroom and stand up. She walked to her next door neighbor to get help. We were consulted after findings of a type 2 odontoid fracture. The patient currently denies any focal weakness, numbness or tingling, or bladder or bowel dysfunction. She denies admit to posterior neck pain, currently at 4-5 out of 10. She does admit to a prior trauma 1 year ago, falling in a parking lot. She doesn't remember if she had neck pain after this fall but did not seek any medical attention. Review of Systems Review of Systems: All systems reviewed & are unremarkable except as noted in HPI and below PMFSH Past Medical History Medical History (Updated 04/01/23 @ 07:40 by Cari Cuellar MD) Abnormal urinalysis Anxiety Aortic stenosis, mild BMI 21.0-21.9, adult BMI 22.0-22.9, adult BMI 24.0-24.9, adult BPPV (benign paroxysmal positional vertigo) Cervicalgia Changing skin lesion Chest pressure Colon cancer screening Dizziness DJD (degenerative joint disease), multiple sites MCQUEEN (dyspnea on exertion) Dry cough Elevated LFTs Encounter for Medicare annual wellness exam Encounter for routine adult health examination with abnormal findings Encounter for routine adult health examination without abnormal findings Encounter to establish care FHx: colon cancer Follow up Genital herpes Hx of colonic polyps Hyperlipidemia Infection of left earlobe Itchy scalp Loss of smell Loss of taste Memory impairment Mitral valve prolapse Mitral valve regurgitation Nightmares On long-term drug therapy Orthostatic hypotension Osteoporosis Other ascites Post-menopausal Scoliosis Skin tag SOB (shortness of breath) Sore throat Unintentional weight loss Vitamin D deficiency Family History Family History (Reviewed 11/30/22 @ 10:53 by Masha Goldsmith,
[2023-04-01] MEDS: HYDROcodone/acetaminophen (*CRX) 5-325 MG TABLET 1 TAB PO (15:24)
--- NOTE | 2023-04-01 17:15 | PM.DS ---
DS: Admitting Diagnosis Discharge Date 04/01/23 Admitting Diagnosis (1) Odontoid fracture with type II morphology: ?Code(s): S12.110A - Anterior displaced Type II dens fracture, initial encounter for closed fracture ?Status:?Acute (2) Fall (on) (from) other stairs and steps, initial encounter: ?Code(s): W10.8XXA - Fall (on) (from) other stairs and steps, initial encounter ?Status:?Acute (3) Vitamin D deficiency: ?Code(s): E55.9 - Vitamin D deficiency, unspecified ?Status:?Acute (4) Osteopenia: ?Code(s): M85.80 - Other specified disorders of bone density and structure, unspecified site ?Status:?Acute (5) Orthostatic hypotension: ?Code(s): I95.1 - Orthostatic hypotension ?Status:?Acute (6) Fall: DS: Discharge Diagnosis Discharge Diagnosis (1) Odontoid fracture with type II morphology: Code(s): S12.110A - Anterior displaced Type II dens fracture, initial encounter for closed fracture Status: Acute (2) Fall (on) (from) other stairs and steps, initial encounter: Code(s): W10.8XXA - Fall (on) (from) other stairs and steps, initial encounter Status: Acute (3) Vitamin D deficiency: Code(s): E55.9 - Vitamin D deficiency, unspecified Status: Acute (4) Osteopenia: Code(s): M85.80 - Other specified disorders of bone density and structure, unspecified site Status: Acute (5) Orthostatic hypotension: Code(s): I95.1 - Orthostatic hypotension Status: Acute (6) Fall: Qualifiers: Encounter type: initial encounter Qualified Code(s): W19.XXXA - Unspecified fall, initial encounter Code(s): W19.XXXA - Unspecified fall, initial encounter Status: Acute (7) Azotemia: Code(s): R79.89 - Other specified abnormal findings of blood chemistry Status: Acute (8) Dehydration: Code(s): E86.0 - Dehydration Status: Acute DS: Summary Hospital Course Hospital Course: 77 year lady with history of orthostatic hypotension, osteoporosis, present ED with a chief complaint of fall and neck pain.? Patient states she had a fall about 10 30 p.m. yesterday.? patient lost balance, and fell forward.? Patient denied loss consciousness, but patient could move arm black for while after fall.? Patient denies urinary fecal incontinence, chest pain, palpitation, abdomen pain, nausea vomiting.? Patient had a fall recently,? and patient stated she did not have major injury on the neck.? It patient was able to move the arm labs about few minutes after the fall.? Patient will brought to ED for evaluation.? Upon arrival in the ED, patient was afebrile, blood pressure stable, pulse ox 100% on room air, patient was found have elevated BUN creatinine ratio 31/0.8. ? CT shows no acute intracranial issues, CT C-spine shows? acute type 2 odontoid fracture with 3 mm retrolisthesis of the fracture fragment.? Recommend MRI of the cervical spine.? Patient neck is immobilized with hard collar acute type 2 odontoid fracture and fall Patient fall a, sustained acute type 2 odontoid fracture Neck immobilized by hold color Optimize pain management Fall precaution Cervical MRI : 1. Unchanged 3 mm posterior displacement of a type II odontoid fracture. There is mild increased cord signal posterior to the fracture plane suspicious for cord contusion versus myelomalacia. There is no significant swelling of the cord which along with the absence of appreciable marrow edema or prevertebral soft tissue swelling suggests this may be subacute. Correlate for history of prior trauma. 2. Severe cervical spondylosis. Consulted neurosurgeon, and I also discussed the case with Nayely on the phone the PA of neurosurgeon. management per neurosurgeon When I saw exam patient in the ED, patient did not have focal weakness, abnormal sensations or vision changes Osteopenia and vitamin-D deficiency Follow-up vitamin-D level Continue with treatment
--- NOTE | 2023-04-01 17:24 | PC.NURSE ---
tray ordered at 1720 being sent to 341
[2023-04-05 02:17] LABS: Vitamin D 1,25 (OH)2 Total 57 pg/mL (18-72); Vitamin D2 1,25 (OH)2 <8 pg/mL; Vitamin D3 1,25 (OH)2 57 pg/mL
== END 2023-04-01 18:00 | disposition home or self-care (01) ==
LOC: ANHED 04-01 01:15 → ANH3MEDSUR 04-01 05:31 → ANH3MED 04-04 07:36 → ANH3MEDSUR 04-04 07:36
PROVIDERS: Admitting Provider Internal Medicine; Emergency Provider Student in an Organized Health Care Education/Training Program; PCP Internal Medicine; Visit Provider Hospitalist
DX: S12.110A Anterior displaced Type II dens fracture, initial encounter for closed fracture (principal); S00.31XA Abrasion of nose, initial encounter; W06.XXXA Fall from bed, initial encounter; Y93.84 Activity, sleeping; Y92.9 Unspecified place or not applicable; M85.80 Other specified disorders of bone density and structure, unspecified site; E86.0 Dehydration; M50.31 Other cervical disc degeneration, high cervical region; M50.321 Other cervical disc degeneration at C4-C5 level; M50.323 Other cervical disc degeneration at C6-C7 level; M47.812 Spondylosis without myelopathy or radiculopathy, cervical region; I95.1 Orthostatic hypotension; R79.89 Other specified abnormal findings of blood chemistry; M81.0 Age-related osteoporosis without current pathological fracture; F41.9 Anxiety disorder, unspecified; E78.5 Hyperlipidemia, unspecified; R94.31 Abnormal electrocardiogram [ECG] [EKG]; E55.9 Vitamin D deficiency, unspecified; Z79.899 Other long term (current) drug therapy; Z83.438 Family history of other disorder of lipoprotein metabolism and other lipidemia
CPT/HCPCS: 36415; 70450; 72125; 72141; 80053; 82306; 82652; 85025; 93005; 96374; 96375; 99285; A9270; G0378; J2270; J2405; L0140

== ENCOUNTER 2023-05-11 08:16 | Outpatient (CLI) | payer MEDICARE, SELFPAY ==
--- NOTE | ~2023-05-11 | XR_ITS ---
XR_CERV2-3V_CR DATE: 05/11/2023 08:42 INDICATION: Neck pain TECHNIQUE: AP, odontoid, open mouth and lateral views COMPARISON: April 01, 2023 MR cervical spine March 31, 2023 CT cervical spine August 26, 2022 cervical spine is not available from PACS FINDINGS: There is approximately 2.9 mm posteriorly displaced odontoid fracture. There is approximate ly 2.2 mm posterior displacement on March 31, 2023 CT examination. There is degenerative disc disease throughout the cervical spine, mild at C2-3, moderate at C3-4, mod erately severe at C4-5 and severe at C5-6 and C6-7. Stable mild anterolisthesis at C4-5 compared to March 31, 2023. Uncovertebral joint spurring is noted particularly in the mid and lower cervical spine. There is prom inent degenerative change at the apophyseal joints throughout the cervical spine. IMPRESSION: 2.9 mm posteriorly displaced C2 odontoid process fracture Severe cervical spondylosis Reviewed, dictated and finalized at [facility]. Reviewed, dictated and finalized at [facility].
== END 2023-05-11 08:17 | disposition home or self-care (01) ==
PROVIDERS: PCP Internal Medicine; Visit Provider Physician Assistant
DX: S12.112D Nondisplaced Type II dens fracture, subsequent encounter for fracture with routine healing (principal); M43.02 Spondylolysis, cervical region
CPT/HCPCS: 72040

== ENCOUNTER 2023-05-30 18:06 | Emergency (ER) | payer MEDICARE, SELFPAY ==
--- NOTE | ~2023-05-30 | XR_ITS ---
EXAM: XR ankle RT min 3V, XR foot RT min 3V DATE: 05/30/2023 18:38 HISTORY: fall . COMPARISON: None available. FINDINGS: Normal mineralization. Small linear osseous fragment lateral to the cuboid in the frontal ankle view. Similar fragment noted lateral to the anterior calcaneus in the frontal view of the foot. No lytic or blastic lesion. Scattered degenerative changes, severe at the first MTP joint. Mild Achi lles and plantar enthesopathy No erosion or periosteal change. Lateral soft tissue swelling. Ankle lacy int effusion Tissues within normal limits. IMPRESSION: Small calcaneal avulsion, may represent extensor digitorum brevis avulsion or avulsion of the calcaneal cuboid ligament. Ankle joint effusion. Lateral ankle swelling. Reviewed, dictated and finalized at [facility]. IMPRESSION: Small calcaneal avulsion, may represent extensor digitorum brevis a vulsion or avulsion of the calcaneal cuboid ligament. Ankle joint effusion. Lat eral ankle swelling.
[2023-05-30 18:09] VITALS: BP 122/61; PULSE 71; RESP 14; TEMP 36.9; O2SAT 98
--- NOTE | 2023-05-30 18:11 | ED.GENADULT ---
HPI - General Adult General Chief complaint: Extremity Injury, Lower <Shital Bautista, DIRT SHOVELER - Last Filed: 05/30/23 18:14> Stated complaint: R ankle pain after fall 05/30/23 <Shital Bautista, DIRT SHOVELER - Last Filed: 05/30/23 18:14> Time Seen by Provider: 05/30/23 18:12 <Shital Neff June, DIRT SHOVELER - Last Filed: 05/30/23 18:14> Focused HPI: Swati Smith is a 77 y/o female who presents with complaints of falling down one stair today rolling her right ankle and falling on to her side. She denies hitting her head and no LOC. Complains of pain to her right ankle + swelling and ecchymosis to lateral right ankle GENERAL: Well-appearing, well-nourished, and in no acute distress. HEAD: Normocephalic, atraumatic. CHEST: Clear to auscultation. ?No respiratory distress. HEART: Regular rate and rhythm.? NEURO: ?Alert and oriented x3. Patient screened in triage and initial orders placed.? ?Additional care and disposition to be based upon?diagnostic testing and treatment. <Shital Bautista, DIRT SHOVELER - Last Filed: 05/30/23 18:14> History of Present Illness HPI narrative: Agree with HPI <Adonis Ivey MD - Last Filed: 05/30/23 22:11> Related Data Home medications: Home Medications Medication Instructions Recorded Confirmed cholecalciferol (vitamin D3) 50 50 mcg PO DAILY 09/17/21 05/15/23 mcg (2,000 unit) capsule multivitamin 1 tablet PO DAILY 02/10/22 05/15/23 biotin 500 mcg BYMOUTH 06/23/22 05/15/23 inulin 2 gram chewable tablet 5 g PO BID 06/23/22 05/15/23 (Fiber Gummies) midodrine 5 mg tablet 5 mg PO TID 08/18/22 05/15/23 acetaminophen 650 mg 650 mg PO DAILY 04/04/23 05/15/23 tablet,extended release (Tylenol Arthritis Pain) <Shital Bautista, DIRT SHOVELER - Last Filed: 05/30/23 18:14> Allergies/adverse reactions: Allergies Allergy/AdvReac Type Severity Reaction Status Date / Time Xqbsjem-[id number]-DhD Reductase Allergy Intermediate elevated Verified 05/30/23 18:07 Inhibitor liver enzymes <Shital Bautista APRN - Last Filed: 05/30/23 18:14> Review of Systems Constitutional: Constitutional: Reports no additional constitutional complaints <Adonis Ivey MD - Last Filed: 05/30/23 22:11> Musculoskeletal: Musculoskeletal: Reports arthralgias and Reports joint swelling <Adonis Ivey MD - Last Filed: 05/30/23 22:11> Integumentary/Breasts: Skin/Breast: Denies erythema and Denies rash <Adonis Ivey MD - Last Filed: 05/30/23 22:11> Comments: ankle contusion <Adonis Ivey MD - Last Filed: 05/30/23 22:11> [facility] Past Medical History Medical History: Medical History Abnormal urinalysis Abrasion of nose Anxiety Aortic stenosis, mild BMI 21.0-21.9, adult BMI 22.0-22.9, adult BMI 24.0-24.9, adult BPPV (benign paroxysmal positional vertigo) Cervicalgia Changing skin lesion Chest pressure Colon cancer screening Dizziness DJD (degenerative joint disease), multiple sites MCQUEEN (dyspnea on exertion) Dry cough Elevated LFTs Encounter for Medicare annual wellness exam Encounter for routine adult health examination with abnormal findings Encounter for routine adult health examination without abnormal findings Encounter to establish care Fall (on) (from) other stairs and steps, initial encounter FHx: colon cancer Follow up Genital herpes Hx of colonic polyps Hyperlipidemia Infection of left earlobe Itchy scalp Loss of smell Loss of taste Memory impairment Mitral valve prolapse Mitral valve regurgitation 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
[2023-05-30] MEDS: ACETAMINOPHEN 500 MG TABLET 1000 MG PO (20:38)
[2023-05-30] MEDS: KETOROLAC 30 MG/ML VIAL (*BKC) IM (20:39)
[2023-05-30 22:26] VITALS: BP 117/68; PULSE 66; RESP 16; O2SAT 97
== END 2023-05-30 22:28 | disposition home or self-care (01) ==
PROVIDERS: Emergency Provider Emergency Medicine; PCP Internal Medicine
DX: S92.001A Unspecified fracture of right calcaneus, initial encounter for closed fracture (principal); I08.0 Rheumatic disorders of both mitral and aortic valves; E78.5 Hyperlipidemia, unspecified; E55.9 Vitamin D deficiency, unspecified; M19.90 Unspecified osteoarthritis, unspecified site; M81.0 Age-related osteoporosis without current pathological fracture; Z86.010 Personal history of colon polyps; Z87.891 Personal history of nicotine dependence; W10.9XXA Fall (on) (from) unspecified stairs and steps, initial encounter
CPT/HCPCS: 29515; 73610; 73630; 96372; 99284; A9270; J1885

== ENCOUNTER 2023-06-14 07:49 | Outpatient (CLI) | payer MEDICARE, SELFPAY ==
[2023-06-14 08:25] LABS: Basophils Percent Auto 0.6 % (0.2-1.2); Eosinophils Absolute Auto 0.2 K/mm3 (0-0.3); Eosinophils Percent Auto 2.7 % (0-4.4); Hemoglobin 12.8 g/dL (12.0-15.0); Immature Granulocyte Absolute 0.02 K/mm3 (0.00-0.031); Immature Granulocyte Percent A 0.3 % (0-0.5); Lymphocytes Absolute Auto 0.83 K/mm3 (0.9-3.2); Lymphocytes Percent Auto 12.3 % (18.3-44.2); Mean Corpuscular HGB Conc 32.8 g/dl (32-36); Mean Corpuscular Hemoglobin 29.7 pg (26-34); Mean Corpuscular Volume 90.5 fl (80-100); Mean Platelet Volume 9.8 fl (7.4-10.4); Monocytes Absolute Auto 0.4 K/mm3 (0.1-0.6); Monocytes Percent Auto 5.6 % (2.6-8.5); Neutrophils Absolute Auto 5.3 K/mm3 (1.3-6.7); Neutrophils Percent Auto 78.5 % (45.5-73.1); Platelet Count Result 301 k/mm3 (150-375); Red Blood Count 4.31 M/mm3 (4.2-5.4); Red Cell Distribution Width 13.6 % (11.5-14.5); White Blood Count 6.8 K/mm3 (4.5-10.0)
[2023-06-14 08:39] LABS: Alanine Aminotransferase 27 U/L (6-35); Albumin Level 4.8 g/dL (3.5-5.1); Alkaline Phosphatase 69 U/L (38-126); Anion Gap 8 mmol/L (4-12); Aspartate Amino Transferase 32 U/L (14-36); Bilirubin,Total 0.7 mg/dL (0.2-1.3); Blood Urea Nitrogen 30 mg/dL (7-17); Calcium 10.3 mg/dL (8.4-10.2); Carbon Dioxide 26 mmol/L (22-30); Chloride 107 mmol/L (98-107); Cholesterol 170 mg/dL (0-200); Estimated Glomerular Filt Rate > 60; Glucose 91 mg/dL (65-110); HDL Direct 56 mg/dL; Potassium 4.2 mmol/L (3.4-5.0); Sodium 141 mmol/L (137-145); Triglycerides 93 mg/dL (<150)
[2023-06-14 08:43] LABS: Hemoglobin A1C 5.6 % (<5.7)
[2023-06-14 08:50] LABS: LDL Cholesterol Direct 83 mg/dL
[2023-06-14 09:08] LABS: Thyroid Stimulating Hormone 0.036 uIU/mL (0.465-4.680)
[2023-06-14 09:09] LABS: Free T4 Free Thyroxine 1.27 ng/mL (0.78-2.19); Vitamin D 25 Hydroxy 66.1 ng/mL
[2023-06-14 09:47] LABS: Folic Acid > 20.0 ng/mL (2.76->20)
== END 2023-06-14 07:50 | disposition home or self-care (01) ==
LOC: ANHLAB 07:52
PROVIDERS: PCP Internal Medicine; Visit Provider Internal Medicine
DX: E55.9 Vitamin D deficiency, unspecified (principal); E53.8 Deficiency of other specified B group vitamins; E78.2 Mixed hyperlipidemia; Z79.899 Other long term (current) drug therapy; Z13.1 Encounter for screening for diabetes mellitus; Z13.29 Encounter for screening for other suspected endocrine disorder
CPT/HCPCS: 36415; 80053; 80061; 82306; 82607; 82746; 83036; 84439; 84443; 85025

== ENCOUNTER 2023-06-20 08:19 | Outpatient (CLI) | payer MEDICARE, SELFPAY ==
--- NOTE | ~2023-06-20 | CT_ITS ---
EXAMINATION: CT cervical spine wo con DATE: 06/20/2023 08:53 INDICATION: Anteriorly displaced type II dens fracture TECHNIQUE: Computed tomography (CT) of the cervical spine was performed without intravenous contrast. Automated exposure control and iterative reconstruction technique were employed. The dose-length pro duct was 124.69 mGy-cm. COMPARISON: CT dated 03/31/2023 and MRI dated 04/01/2023 FINDINGS: No significant change a type II odontoid fracture with 4 mm displacement of the odontoid fragment. Al so unchanged is a nondisplaced oblique sagittal fracture across the anterior ring of C2. 2 mm anterol isthesis C4 on C5. Vertebral body heights are normal. No new fractures identified. Severe disc height loss at C4-C5, C5-C6 and C6-C7 and moderate disc height loss at C3-C4 and mild disc height loss at C 2-C3. Disc bulges and posterior complexes throughout the cervical spine resulting in multilevel mild central canal stenosis. There is also multilevel severe bilateral facet uncovertebral osteoarthritis contributing to mild to moderate neural foraminal stenosis. See prior MRI report for level by level a nalysis. Mild biapical pleural-parenchymal scarring. Small amount of atherosclerotic calcific a cyst at the bilateral carotid bulbs. Cervical soft tissues are otherwise unremarkable. IMPRESSION: 1. No significant change in a type II odontoid fracture with 4 mm posterior displacement of the odont oid fragment. 2. No change in a nondisplaced fracture across anterior ring of C2. 3. Severe cervical spondylosis. Reviewed, dictated and finalized at location [facility]. IMPRESSION: 1. No significant change in a type II odontoid fracture with 4 mm posterior dis placement of the odontoid fragment. 2. No change in a nondisplaced fracture across anterior ring of C2. 3. Severe cervical spondylosis.
== END 2023-06-20 08:20 | disposition home or self-care (01) ==
PROVIDERS: PCP Internal Medicine; Visit Provider Physician Assistant
DX: S12.110A Anterior displaced Type II dens fracture, initial encounter for closed fracture (principal); M43.02 Spondylolysis, cervical region; X58.XXXA Exposure to other specified factors, initial encounter
CPT/HCPCS: 72125

== ENCOUNTER 2023-06-21 11:15 | Emergency (ER) | payer MEDICARE, SELFPAY ==
--- NOTE | ~2023-06-21 | XR_ITS ---
EXAMINATION: XR chest 2V DATE: 06/21/2023 11:47 INDICATION: Palpitations. TECHNIQUE: Frontal and lateral views of the chest were obtained. COMPARISON: Chest single view 03/17/2022 FINDINGS: There is mild scarring at the lung apices. There is mild atelectasis at left lung base. No pleural effusion or pneumothorax. The heart size is normal. There is mild chronic height loss of mult iple vertebral bodies. IMPRESSION: 1. Mild atelectasis at left lung base and mild scarring at the lung apices. Reviewed, dictated and finalized at location [facility].
[2023-06-21 11:16] VITALS: BP 125/81; PULSE 110; RESP 16; TEMP 36.6; O2SAT 98
--- NOTE | 2023-06-21 11:17 | ECG_ITS ---
SEE SCANNED COPY FOR CONFIRMED REPORT MTDD
[2023-06-21 11:18] VITALS: BP 133/55; PULSE 68; RESP 17; TEMP 36.6; O2SAT 98
[2023-06-21 11:25] VITALS: PULSE 65
[2023-06-21 11:31] VITALS: O2SAT 97
[2023-06-21 11:44] LABS: Basophils Percent Auto 0.5 % (0.2-1.2); Eosinophils Absolute Auto 0.1 K/mm3 (0-0.3); Eosinophils Percent Auto 1.8 % (0-4.4); Hematocrit 40.9 % (37.0-47.0); Hemoglobin 13.2 g/dL (12.0-15.0); Immature Granulocyte Absolute 0.02 K/mm3 (0.00-0.031); Immature Granulocyte Percent A 0.3 % (0-0.5); Lymphocytes Absolute Auto 1.18 K/mm3 (0.9-3.2); Lymphocytes Percent Auto 18.9 % (18.3-44.2); Mean Corpuscular HGB Conc 32.3 g/dl (32-36); Mean Corpuscular Hemoglobin 29.4 pg (26-34); Mean Corpuscular Volume 91.1 fl (80-100); Monocytes Absolute Auto 0.5 K/mm3 (0.1-0.6); Monocytes Percent Auto 7.7 % (2.6-8.5); Neutrophils Absolute Auto 4.4 K/mm3 (1.3-6.7); Neutrophils Percent Auto 70.8 % (45.5-73.1); Platelet Count Result 341 k/mm3 (150-375); Red Blood Count 4.49 M/mm3 (4.2-5.4); Red Cell Distribution Width 13.5 % (11.5-14.5); White Blood Count 6.3 K/mm3 (4.5-10.0)
[2023-06-21 11:55] LABS: Alanine Aminotransferase 24 U/L (6-35); Albumin Level 4.7 g/dL (3.5-5.1); Alkaline Phosphatase 61 U/L (38-126); Anion Gap 7 mmol/L (4-12); Aspartate Amino Transferase 34 U/L (14-36); Bilirubin,Total 0.7 mg/dL (0.2-1.3); Blood Urea Nitrogen 29 mg/dL (7-17); Calcium 10.1 mg/dL (8.4-10.2); Carbon Dioxide 28 mmol/L (22-30); Chloride 103 mmol/L (98-107); Estimated CRCL calculation 46 ml/min; Estimated Glomerular Filt Rate > 60; Glucose 113 mg/dL (65-110); Lipase 110 U/L (23-300); Potassium 4.2 mmol/L (3.4-5.0); Sodium 138 mmol/L (137-145)
[2023-06-21 12:04] LABS: INR 1.1; Prothrombin Time 14.8 Seconds (11.1-14.7)
[2023-06-21 12:05] LABS: Partial Thromboplastin Time 29.8 Seconds (22.3-36.8)
[2023-06-21 12:06] LABS: Troponin I < 0.012 ng/mL (0.000-0.034)
[2023-06-21 12:26] LABS: Magnesium 2.4 mg/dL (1.6-2.3)
--- NOTE | 2023-06-21 12:34 | ED.ARRPALP ---
HPI - Arrhythmia/Palpitations General Chief Complaint: Arrhythmia/Palpitations Stated Complaint: heart palpatations Time Seen by Provider: 06/21/23 11:24 History of Present Illness HPI narrative: 78-year-old female presents to the emergency department for evaluation for suspected heart palpitations. Patient states that on Tuesday she had a previous station that felt like a tingling in her left leg and then had another sensation up in her chest. Patient states that the sensation happened Tuesday then twice on Tuesday and once again on Tuesday. Patient denies any current chest pain or shortness of breath Patient is and a [place] collar for a previous odontoid fracture for approximately 1 month ago. Patient is already following up with Neurosurgery for this. Patient denies any new numbness or weakness denies any falls or injuries. Related Data Home Medications Medication Instructions Recorded Confirmed cholecalciferol (vitamin D3) 50 50 mcg PO DAILY 09/17/21 06/14/23 mcg (2,000 unit) capsule multivitamin 1 tablet PO DAILY 02/10/22 06/14/23 inulin 2 gram chewable tablet 5 g PO BID 06/23/22 06/14/23 (Fiber Gummies) midodrine 5 mg tablet 5 mg PO TID 08/18/22 06/14/23 B-complex with vitamin C 1 cap PO DAILY 06/02/23 06/14/23 biotin 5,000 mcg disintegrating 10,000 mcg PO DAILY 06/02/23 06/14/23 tablet acetaminophen 650 mg 650 mg PO DAILY PRN 06/14/23 06/14/23 tablet,extended release (Tylenol Arthritis Pain) Allergies Allergy/AdvReac Type Severity Reaction Status Date / Time Dtcmlwi-[id number]-FgD Reductase Allergy Intermediate elevated Verified 06/21/23 11:25 Inhibitor liver enzymes Review of Systems Review of Systems: All systems reviewed & are unremarkable except as noted in HPI and below [facility] Past Medical History Medical History (Updated 06/21/23 @ 15:11 by Noman Sesay MD) Abnormal urinalysis Abrasion of nose Anxiety Aortic stenosis, mild BMI 21.0-21.9, adult BMI 22.0-22.9, adult BMI 24.0-24.9, adult BPPV (benign paroxysmal positional vertigo) Cervicalgia Changing skin lesion Chest pressure Colon cancer screening Dizziness DJD (degenerative joint disease), multiple sites MCQUEEN (dyspnea on exertion) Dry cough Elevated LFTs Encounter for Medicare annual wellness exam Encounter for routine adult health examination with abnormal findings Encounter for routine adult health examination without abnormal findings Encounter to establish care Fall (on) (from) other stairs and steps, initial encounter FHx: colon cancer Follow up Genital herpes Hospital discharge follow-up Hx of colonic polyps Hyperlipidemia Infection of left earlobe Itchy scalp Loss of smell Loss of taste Memory impairment Mitral valve prolapse Mitral valve regurgitation 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: Yes Lack of Transportation: No Lack of Food: Never True Current Housing: I Have Housing Concerned About Future Housing: No Difficulty Paying Gas/Electric Bills: No Difficulty Paying for Meds: No Currently Unemployed: No Education: Associate Degree Difficulty w/ Childcare or Family Care: No Living arrangements: alone Occupation/Education: retir
[2023-06-21 13:18] VITALS: BP 110/43; PULSE 64; RESP 22; O2SAT 96
--- NOTE | 2023-06-21 14:23 | ECG_ITS ---
SEE SCANNED COPY FOR CONFIRMED REPORT MTDD
[2023-06-21 14:57] LABS: Troponin I < 0.012 ng/mL (0.000-0.034)
[2023-06-21 15:34] VITALS: BP 114/62; PULSE 60; RESP 17; TEMP 36.8; O2SAT 95
== END 2023-06-21 15:36 | disposition home or self-care (01) ==
PROVIDERS: Emergency Provider Emergency Medicine; PCP Internal Medicine
DX: R00.2 Palpitations (principal); F41.9 Anxiety disorder, unspecified; E78.5 Hyperlipidemia, unspecified; E55.9 Vitamin D deficiency, unspecified
CPT/HCPCS: 36415; 71046; 80053; 83690; 83735; 84484; 85025; 85610; 85730; 93005; 99284

== ENCOUNTER 2023-06-27 13:52 | Outpatient (CLI) | payer MEDICARE, SELFPAY ==
--- NOTE | ~2023-06-27 | XR_ITS ---
XR_CERV2-3V_CR DATE: 06/27/2023 14:37 INDICATION: Neck fracture TECHNIQUE: Lateral and flexion and extension lateral views COMPARISON: May 11, 2023 cervical spine August 26, 2022 cervical spine FINDINGS: There is straightening of the cervical spine which may be due to muscle spasm. The odontoid process is posteriorly displaced with respect to the body of C2, remaining relatively st able in position on flexion, extension and neutral positioning. There is mild anterolisthesis at C3-4 and C4-5, reduced at C3-4 in extension. Severe degenerative disc disease is again noted at C4-5 and particular C5-6 and C6-7. IMPRESSION: Odontoid process fracture appears stable since May 11, 2023 Severe cervical spondylosis Reviewed, dictated and finalized at Location A. Reviewed, dictated and finalized at location B.
[2023-06-27 14:54] LABS: Magnesium 1.4 mg/dL (1.6-2.3)
[2023-06-28 11:59] LABS: Triiodothyronine T3 Free 3.1 pg/mL (2.3-4.2)
== END 2023-06-27 13:53 | disposition home or self-care (01) ==
LOC: ANHLAB 13:56
PROVIDERS: PCP Internal Medicine; Visit Provider Internal Medicine
DX: S12.111D Posterior displaced Type II dens fracture, subsequent encounter for fracture with routine healing (principal); M43.02 Spondylolysis, cervical region; I49.1 Atrial premature depolarization; R79.89 Other specified abnormal findings of blood chemistry; X58.XXXD Exposure to other specified factors, subsequent encounter
CPT/HCPCS: 36415; 72040; 83735; 84481

== ENCOUNTER 2023-09-06 08:54 | Outpatient (CLI) | payer MEDICARE, SELFPAY ==
--- NOTE | ~2023-09-06 | CT_ITS ---
Clinical Indication: Pulmonary nodule CT Scan of the Chest, Abdomen, and Pelvis with Contrast: Technique: Contiguous sections were acquired throughout the chest, abdomen, and pelvis after intraven ous administration of 100 cc of Omnipaque 350. Dose reduction technique was used on this scan by eddie barrios automated exposure control and iterative reconstruction technique. The dose-length product (DL P) was 389.38 mGy-cm. COMPARISON: 08/26/2022 Findings: There is no evidence of any significant mediastinal, hilar or axillary lymphadenopathy. The mediastin al soft tissues appear normal. There is no evidence of pleural or pericardial effusion. Stable right pericardial cyst. Stable 5 mm groundglass nodule in the right upper lobe (axial image 33). Mild biapical scarring noted . Stable right hepatic lobe cyst. The spleen, pancreas, gallbladder, adrenals and kidneys are within no rmal limits. There are atherosclerotic calcifications of the aorta. No lymphadenopathy. No bowel obstruction or bowel wall thickening. There is no evidence to suggest acute appendicitis. Urinary bladder is unremarkable. No pelvic mass seen. No ascites. Impression: Stable 5 mm groundglass right upper lobe pulmonary nodule. Reviewed, dictated and finalized at location . Impression: Stable 5 mm groundglass right upper lobe pulmonary nodule.
[2023-09-06 09:12] LABS: Estimated Glomerular Filt Rate 53
== END 2023-09-06 08:55 ==
LOC: MICIMG 08:56
PROVIDERS: PCP Internal Medicine; Visit Provider Internal Medicine
DX: R91.1 Solitary pulmonary nodule (principal)
CPT/HCPCS: 71260; 74177; Q9967

== ENCOUNTER 2023-09-19 12:30 | Outpatient (RCR) | payer MEDICARE, SELFPAY ==
--- NOTE | 2023-07-25 16:23 | OPREHPOC ---
Outpatient Therapy Plan of Care This is a Multidisciplinary Plan of Care that may contain components documented by all disciplines (PT, OT, and ST.) PT Problem 1 PT Problem #1 Knowledge Deficit PT Goal 1 Goal 1. Patient will perform independent HEP Target Visit 3 PT Problem 2 PT Problem #2 Pain PT Goal 1 Goal 1. Patient will report no ankle pain for at least 1 week Target Visit 8 PT Problem 3 PT Problem #3 Impaired Range of Motion PT Goal 1 Goal 1. Improve right dorsiflexion to 8 to normalize gait pattern Target Visit 8 PT Problem 4 PT Problem #4 Edema PT Goal 1 Goal 1. Right ankle figure 8 will be equal to left Target Visit 8 PT Problem 5 PT Problem #5 Impaired Functional ADLs PT Goal 1 Goal 1. Patient will be able to do all typical yard work and gardening activities Target Visit 8
--- NOTE | 2023-07-25 16:23 | PTOPEVAL1 ---
Assessment and note entered by Macie Geronimo DPT Evaluation Information Assessment Status Evaluation Subjective Information Pt fractured her right calcaneus on 05/30/23. Stepped down with her reading glasses still on and missed the last step. Followed up with Dr. Cardona and was given a boot for a month. Has been out of the boot since the end of June. No specific restrictions. Highest pain in the last week has been in her anterior ankle, 1/10 and lowest 0/10. Feels a lot of stiffness. Has to modify how she does stairs (stairs to basement). Not able to do her normal level of yardwork due to difficulty bending down low. Generally not being as active right now. (Also fractured odontoid in March after falling off a bed). Patient goal: relieve pain, use my foot better No return to MD scheduled. Reported Pain Level Pain Score 1: Self Report Assessment PT Clinical Summary The patient is presenting to skilled therapy with a diagnosis of a calcaneal fracture in May 2023. She presents with decreased right ankle range of motion, decreased strength, and edema which are contributing to her pain and gait/stair impairments as well as difficulty with typical activities at home. She will benefit from therapy to address these impairments in order to reduce pain and restore function. Plan of Care Interventions Electrical Stimulation,Gait Training,Hot Pack/Cold Pack,Manual Therapy,Neuro Re-education,Patient/ Caregiver Education,Therapeutic Activities, Therapeutic Exercise PT Services Indicated Yes Treatment Frequency and 2 times a week for 8 visits Duration These treatments will address the objective and functional deficits as defined above. The patient will be advanced safely and appropriately in order for the patient to progress towards his/her prior level of function. Additional exercises will be introduced and as well as a comprehensive home exercise program upon discharge, if needed, ?to ensure carryover of functional gains achieved in the clinic. This treatment plan has been reviewed and agreement upon by the patient.
--- NOTE | 2023-08-22 13:49 | OPREHPOC ---
Outpatient Therapy Plan of Care This is a Multidisciplinary Plan of Care that may contain components documented by all disciplines (PT, OT, and ST.) PT Problem 1 PT Problem #1 Knowledge Deficit PT Goal 1 Goal 1. Patient will perform independent HEP Target Visit 3 Progress Met PT Problem 2 PT Problem #2 Pain PT Goal 1 Goal 1. Patient will report no ankle pain for at least 1 week Target Visit 12 Progress Partially Met PT Problem 3 PT Problem #3 Impaired Range of Motion PT Goal 1 Goal 1. Improve right dorsiflexion to 8 to normalize gait pattern Target Visit 12 Progress Partially Met Comment 1. improved to 6 PT Problem 4 PT Problem #4 Edema PT Goal 1 Goal 1. Right ankle figure 8 will be equal to left Target Visit 8 Progress Met PT Problem 5 PT Problem #5 Impaired Functional ADLs PT Goal 1 Goal 1. Patient will be able to do all typical yard work and gardening activities Target Visit 12 Progress Partially Met Comment 1. not yet tried all yard work
--- NOTE | 2023-08-22 13:49 | PTOPPROG ---
Assessment and note entered by Macie Geronimo DPT Evaluation Information Assessment Status Progress Subjective Information Pt reports overall she is feeling better, noticing some redness in her foot which concerns her. Some foot pain with bending her foot. Highest pain in last week 2-3/10 and lowest 0/10. Continued difficulty navigating stairs to basement and activities that require squatting. Does think her pain overall with those activities is not as bad. Assessment PT Clinical Summary The patient has made some progress in therapy and demonstrates overall improvements in ankle range of motion, strength, circumference, and gait speed . She continues to have some decreased active dorsiflexion and pain with inversion and activities like stair descent and squatting. She will benefit from continued therapy to further address pain and motion in order to return to full function. Plan of Care Interventions Electrical Stimulation,Gait Training,Hot Pack/Cold Pack,Manual Therapy,Neuro Re-education,Patient/ Caregiver Education,Therapeutic Activities, Therapeutic Exercise PT Services Indicated Yes Treatment Frequency and 1 time a week for 4 visits Duration These treatments will address the objective and functional deficits as defined above. The patient will be advanced safely and appropriately in order for the patient to progress towards his/her prior level of function. Additional exercises will be introduced and as well as a comprehensive home exercise program upon discharge, if needed, ?to ensure carryover of functional gains achieved in the clinic. This treatment plan has been reviewed and agreement upon by the patient.
--- NOTE | 2023-09-19 13:04 | OPREHPOC ---
Outpatient Therapy Plan of Care This is a Multidisciplinary Plan of Care that may contain components documented by all disciplines (PT, OT, and ST.) PT Problem 1 PT Problem #1 Knowledge Deficit PT Goal 1 Goal 1. Patient will perform independent HEP Target Visit 3 Progress Met PT Problem 2 PT Problem #2 Pain PT Goal 1 Goal 1. Patient will report no ankle pain for at least 1 week Target Visit 12 Progress Met PT Problem 3 PT Problem #3 Impaired Range of Motion PT Goal 1 Goal 1. Improve right dorsiflexion to 8 to normalize gait pattern Target Visit 12 Progress Met PT Problem 4 PT Problem #4 Edema PT Goal 1 Goal 1. Right ankle figure 8 will be equal to left Target Visit 8 Progress Met PT Problem 5 PT Problem #5 Impaired Functional ADLs PT Goal 1 Goal 1. Patient will be able to do all typical yard work and gardening activities Target Visit 12 Progress Met
--- NOTE | 2023-09-19 13:05 | PTOPDC ---
Assessment and note entered by Macie Geronimo DPT Evaluation Information Assessment Status Discharge Subjective Information Pt reports she has not really had any pain in the last week, still just a tweak when descending stairs. States it has not stopped her from doing anything and has been able to garden. Reported Pain Level Pain Score 0: Self Report Assessment PT Clinical Summary The patient has made good progress and reports no functional limitations at this time. She demonstrates improved ankle motion and strength and improved gait speed. Due to her progress, plan to discharge at this time. She has been educated to continue HEP and follow up with MD and/or PT as needed. Plan of Care PT Services Indicated No
== END 2023-09-19 13:59 | disposition home or self-care (01) ==
LOC: ANHGOSHPT 12:30
PROVIDERS: PCP Internal Medicine; Visit Provider Orthopaedic Surgery
DX: S92.009D Unspecified fracture of unspecified calcaneus, subsequent encounter for fracture with routine healing (principal)
CPT/HCPCS: 97110; 97112; 97140; 97161; 97530

== ENCOUNTER 2023-09-21 13:01 | Outpatient (CLI) | payer MEDICARE, SELFPAY ==
--- NOTE | 2023-09-21 14:30 | NEURO_ITS ---
Impression: # Complains of numbness of upper extremities. History of Odontoid fracture. # No Carpal Tunnel Syndrome or ulnar neuropathy. # Needle/EMG exam with decreased motor unit potentials in deltoid, right more than left. # Clinical correlation recommended. Nerve Conduction Studies Anti Sensory Summary Table Stim Site NR Peak (ms) P-T Amp (?V) Site1 Site2 Delta-P (ms) Dist (cm) Jose (m/s) Left Median Anti Sensory (2-3nd Digit) Wrist 3.3 35.9 Wrist 2-3nd Digit 3.3 14.0 42 Wrist 3.5 24.0 Wrist 2-3nd Digit 3.3 14.0 42 Right Median Anti Sensory (2-3nd Digit) Wrist 3.5 35.7 Wrist 2-3nd Digit 3.5 14.0 40 Wrist 3.4 45.8 Wrist 2-3nd Digit 3.5 14.0 40 Left Radial Anti Sensory (Base 1st Digit) Wrist 2.4 31.3 Wrist Base 1st Digit 2.4 0.0 Right Radial Anti Sensory (Base 1st Digit) Wrist 2.5 14.1 Wrist Base 1st Digit 2.5 0.0 Left Ulnar Anti Sensory (5th Digit) Wrist 2.6 22.1 Wrist 5th Digit 2.6 14.0 54 Right Ulnar Anti Sensory (5th Digit) Wrist 2.8 33.7 Wrist 5th Digit 2.8 14.0 50 Motor Summary Table Stim Site NR Onset (ms) O-P Amp (mV) Site1 Site2 Delta-0 (ms) Dist (cm) Jose (m/s) Left Median Motor (Abd Poll Brev) Wrist 2.9 3.9 Elbow Wrist 4.6 26.0 57 Elbow 7.5 6.2 Right Median Motor (Abd Poll Brev) Wrist 3.1 6.1 Elbow Wrist 4.9 27.0 55 Elbow 8.0 7.8 Left Ulnar Motor (Abd Dig Minimi) Wrist 2.9 5.0 A Elbow Wrist 5.1 28.0 55 A Elbow 8.0 3.2 Right Ulnar Motor (Abd Dig Minimi) Wrist 2.5 7.9 A Elbow Wrist 5.2 28.0 54 A Elbow 7.7 6.7 F Wave Studies NR F-Lat (ms) L-R F-Lat (ms) Left Median (Mrkrs) (Abd Poll Brev) 27.47 0.16 Right Median (Mrkrs) (Abd Poll Brev) 27.63 0.16 Left Ulnar (Mrkrs) (Abd Dig Min) 27.19 0.52 Right Ulnar (Mrkrs) (Abd Dig Min) 27.72 0.52 EMG Side Muscle Nerve Root Ins Act Fibs Amp Dur Recrt Comment Right 1stDorInt Ulnar C8-T1 Nml Nml Nml Nml Nml Right Ext Indicis Radial (Post Int) C7-8 Nml Nml Nml Nml Nml Right Ext Digitorum Radial (Post Int) C7-8 Nml Nml Nml Nml Nml Right BrachioRad Radial C5-6 Nml Nml Nml Nml Nml Right PronatorTeres Median C6-7 Nml Nml Nml Nml Nml Right Abd Poll Brev Median C8-T1 Nml Nml Nml Nml Nml Right ABD Dig Min Ulnar C8-T1 Nml Nml Nml Nml Nml Left 1stDorInt Ulnar C8-T1 Nml Nml Nml Nml Nml Left Ext Indicis Radial (Post Int) C7-8 Nml Nml Nml Nml Nml Left Ext Digitorum Radial (Post Int) C7-8 Nml Nml Nml Nml Nml Left BrachioRad Radial C5-6 Nml Nml Nml Nml Nml Left PronatorTeres Median C6-7 Nml Nml Nml Nml Nml Left Abd Poll Brev Median C8-T1 Nml Nml Nml Nml Nml Left ABD Dig Min Ulnar C8-T1 Nml Nml Nml Nml Nml Right Biceps Musculocut C5-6 Nml Nml Nml Nml Nml Right Triceps Radial C6-7-8 Nml Nml Nml Nml Nml Right Deltoid Axillary C5-6 Nml Nml Nml >12ms +1 Left Biceps Musculocut C5-6 Nml Nml Nml Nml Nml Left Triceps Radial C6-7-8 Nml Nml Nml Nml Nml Left Deltoid Axillary C5-6 Nml Nml Nml >12ms +1 MTDD
== END 2023-09-21 13:02 | disposition home or self-care (01) ==
LOC: ANHNEURO 13:02
PROVIDERS: PCP Internal Medicine; Visit Provider Internal Medicine
DX: R20.0 Anesthesia of skin (principal); R20.2 Paresthesia of skin
CPT/HCPCS: 95886; 95911

== ENCOUNTER 2023-09-27 10:15 | Outpatient (CLI) | payer MEDICARE, SELFPAY ==
--- NOTE | ~2023-09-27 | XR_ITS ---
XR cervical spine 4-5V Ordering provider: Belinda Lambert MD History: . M54.2 - Cervicalgia . Comparison: June 27, 2023 FINDINGS: VERTEBRAL BODIES: Anterolisthesis at the level of C4-C5. Degenerative changes of the spine. Normal he ight and alignment. No visible fracture or subluxation. The dens is intact. DISK SPACES: Multilevel degenerative disc disease. Multilevel facet joint disease. Multilevel uncover tebral joint osteoarthritic changes. PARASPINOUS SOFT TISSUES: No prevertebral soft tissue swelling. IMPRESSION: No acute osseous abnormality cervical spine. Anterolisthesis at the level of C4-C5. Multilevel degenerative disc disease. Reviewed, dictated and finalized at location A. IMPRESSION: No acute osseous abnormality cervical spine. Anterolisthesis at the level of C4 -C5. Multilevel degenerative disc disease.
== END 2023-09-27 10:16 | disposition home or self-care (01) ==
PROVIDERS: PCP Internal Medicine; Visit Provider Neurological Surgery
DX: M50.30 Other cervical disc degeneration, unspecified cervical region (principal)
CPT/HCPCS: 72050

== ENCOUNTER 2023-10-28 08:14 | Outpatient (CLI) | payer MEDICARE, SELFPAY ==
[2023-10-28 09:07] LABS: Alanine Aminotransferase 15 U/L (6-35); Albumin Level 4.7 g/dL (3.5-5.1); Alkaline Phosphatase 69 U/L (38-126); Anion Gap 11 mmol/L (4-12); Aspartate Amino Transferase 28 U/L (14-36); Bilirubin,Total 0.9 mg/dL (0.2-1.3); Blood Urea Nitrogen 28 mg/dL (7-17); Calcium 9.6 mg/dL (8.4-10.2); Carbon Dioxide 29 mmol/L (22-30); Chloride 99 mmol/L (98-107); Cholesterol 179 mg/dL (0-200); Estimated Glomerular Filt Rate 48; Glucose 114 mg/dL (65-110); HDL Direct 61 mg/dL; Potassium 4.3 mmol/L (3.4-5.0); Sodium 139 mmol/L (137-145); Triglycerides 113 mg/dL (<150)
[2023-10-28 09:18] LABS: LDL Cholesterol Direct 86 mg/dL
== END 2023-10-28 08:15 | disposition home or self-care (01) ==
PROVIDERS: PCP Internal Medicine; Visit Provider Internal Medicine
DX: Z79.899 Other long term (current) drug therapy (principal); E78.2 Mixed hyperlipidemia
CPT/HCPCS: 36415; 80053; 80061

== ENCOUNTER 2023-11-18 08:00 | Outpatient (CLI) | payer MEDICARE, SELFPAY | END 2023-11-18 08:01 | disposition home or self-care (01) | PROVIDERS: PCP Internal Medicine; Visit Provider Internal Medicine | DX: H91.90 Unspecified hearing loss, unspecified ear (principal); R42 Dizziness and giddiness | CPT/HCPCS: 92557; 92567 ==

== ENCOUNTER 2024-03-22 09:05 | Outpatient (CLI) | payer MEDICARE, SELFPAY ==
--- NOTE | ~2024-03-22 | XR_ITS ---
EXAMINATION: XR cervical spine 4-5V DATE: 03/22/2024 10:38 INDICATION: Disease of spinal cord, unspecified. TECHNIQUE: 7 views of cervical spine were obtained. COMPARISON: Cervical spine radiographs 09/27/2023, CT 06/20/2023 FINDINGS: There is 3 degrees levocurvature of cervicothoracic spine. There is 2 mm anterolisthesis of C4 on C5. Vertebral body heights are normal. There is a chronic fracture of the base of the dens. Th e superior fracture fragment demonstrates 5 mm posterior displacement. There is severely decreased di sc height from C3-C4 through C6-C7. There is multilevel severe facet joint osteoarthritis. There is m ultilevel mild neural foraminal stenosis bilaterally. There is mild central canal stenosis at C3-C4, C4-C5, C5-C6, and C6-C7. No prevertebral soft tissue swelling. IMPRESSION: 1. Unchanged chronic type II odontoid fracture. 2. Severe cervical spondylosis. Reviewed, dictated and finalized at location A. ER PORTALS TEACHER
--- OUTSIDE RECORDS SUMMARY | 2024-03-22 09:26 | XMS_ITS | Clinical Summary ---
Author Organization [facility] Address [address] [place] [address] Care Team Providers Care Canvas Cutter Name Role Phone Dante Rodriguez MD Primary Care Provider [phone] Source Comments [facility],non-owned Affiliates and Associated Physician Practices is amultiple site organization consisting of ambulatory clinics and hospital sitesin [place], [place], [place] and [place]. This disclosure is being madepursuant to the Care Everywhere program and may not contain all information available regarding this patient. Last updated 17.[facility] Immunizations Name Administration Dates Next Due INFLUENZA VACCINE, HIGH-DOSE , QUADR. (FLUZONE HIGH-DOSE QUADRIVALENT; 65Y+), 0.7 ML (HD-IIV4) 11/21/2019,11/27/2015 Social History Tobacco Use Types Packs/Day Years Used Date Smoking Tobacco: Never Assessed Sex and Gender Information Value Date Recorded Sex Assigned at Not on file Gender Identity Not on file Sexual Orientation Not on file Plan of Treatment Health Maintenance Due Date Last Done Comments BONE DENSITY TESTING 1945 DTAP/TDAP/TD VACCINES (1 - Tdap) 06/18/1963 PNEUMOCOCCAL VACCINE 50+ (1 of 1 - PCV) 1994 ZOSTER VACCINE (1 of 2) 1994 Respiratory Syncytial Virus (RSV) Vaccine Pt: or over 60 yrs (1 - 1-dose 75+ series) 06/18/2019 COVID-19 VACCINE ( - 2023-2 5 season) 2023 INFLUENZA VACCINE (#1) 2023 0, 11/27/2015 DEPRESSION SCREENING 02/08/2024 MEDICARE AWV CALENDAR YEAR 2024 HEPATITIS B VACCINE Aged Out No longe r eligible based on patient's age to complete this topic HIB VACCINE Aged Out No longer eligi ble based on patient's age to complete this topic HPV VACCINE Aged Out No longer eligi ble based on patient's age to complete this topic MENINGOCOCCAL (Group B) VACCINE Aged Out No longer eligible b ased on patient's age to complete this topic MENINGOCOCCAL VACCINE Aged Out No sandra akil eligible based on patient's age to complete this topic Care Teams Canvas Cutter Relationship Specialty Start Date End Date Dante Rodriguez MD [address] [address] PCP - General Internal Medicine 11/27/15
--- OUTSIDE RECORDS SUMMARY | 2024-03-22 09:26 | XMS_ITS | Referral Summary ---
Author Organization [facility] Address [address] [place] [address] Care Team Providers Care Director Of Training Name Role Phone Dante Rodriguez MD Primary Care Provider [phone] Source Comments [facility],non-owned Affiliates and Associated Physician Practices is amultiple site organization consisting of ambulatory clinics and hospital sitesin [place], [place], [place] and [place]. This disclosure is being madepursuant to the Care Everywhere program and may not contain all information available regarding this patient. Last updated 17.[facility] [employer] Immunizations Name Administration Dates Next Due INFLUENZA VACCINE, HIGH-DOSE , QUADR. (FLUZONE HIGH-DOSE QUADRIVALENT; 65Y+), 0.7 ML (HD-IIV4) 11/21/2019,11/27/2015 Social History Tobacco Use Types Packs/Day Years Used Date Smoking Tobacco: Never Assessed Sex and Gender Information Value Date Recorded Sex Assigned at Not on file Gender Identity Not on file Sexual Orientation Not on file Plan of Treatment Not on file Care Teams Director Of Training Relationship Specialty Start Date End Date Dante Rodriguez MD [address] [address] [address] PCP - General Internal Medicine 11/27/15
--- OUTSIDE RECORDS SUMMARY | 2024-03-22 09:26 | XMS_ITS | Patient Health Summary ---
Author Organization [facility] Address [address] [place] [address] Care Team Providers Care Dial Polisher Name Role Phone Dante Rodriguez MD Primary Care Provider Note from [facility],non-owned Affiliates and Associated Physician Practices is amultiple site organization consisting of ambulatory clinics and hospital sitesin [place], [place], [place] and [place]. This disclosure is being madepursuant to the Care Everywhere program and may not contain all information available regarding this patient. Last updated 17.[facility] Immunizations * INFLUENZA VACCINE, HIGH-DOSE, QUADR. (FLUZONE HIGH-DOSE QUADRIVALENT; 65Y+), 0.7 ML (HD-IIV4)(Given 11/21/2019, 11/27/2015) Social History Tobacco Use Types Packs/Day Years Used Date Smoking Tobacco: Never Assessed Sex and Gender Information Value Date Recorded Sex Assigned at Not on file Gender Identity Not on file Sexual Orientation Not on file Care Teams Dial Polisher Relationship Specialty Start Date End Date Dante Rodriguez MD [address] [place] [address] [address] [address] PCP - General Internal Medicine 11/27/15
[2024-03-22 10:13] LABS: Basophils Percent Auto 0.5 % (0.2-1.2); Eosinophils Absolute Auto 0.1 K/mm3 (0-0.3); Eosinophils Percent Auto 1.4 % (0-4.4); Hemoglobin 12.7 g/dL (12.0-15.0); Immature Granulocyte Absolute 0.01 K/mm3 (0.00-0.031); Immature Granulocyte Percent A 0.2 % (0-0.5); Lymphocytes Absolute Auto 0.88 K/mm3 (0.9-3.2); Mean Corpuscular HGB Conc 32.6 g/dl (32-36); Mean Corpuscular Hemoglobin 29.7 pg (26-34); Mean Corpuscular Volume 91.3 fl (80-100); Mean Platelet Volume 10.2 fl (7.4-10.4); Monocytes Absolute Auto 0.4 K/mm3 (0.1-0.6); Monocytes Percent Auto 6.8 % (2.6-8.5); Neutrophils Absolute Auto 4.5 K/mm3 (1.3-6.7); Neutrophils Percent Auto 76.1 % (45.5-73.1); Platelet Count Result 266 k/mm3 (150-375); Red Blood Count 4.27 M/mm3 (4.2-5.4); Red Cell Distribution Width 14.4 % (11.5-14.5); White Blood Count 5.9 K/mm3 (4.5-10.0)
[2024-03-22 10:22] LABS: Add Urine Microscopic? YES; Appearance Urine Turbid (Clear); Bacteria Urine None Seen /hpf; Bilirubin Urine Negative (Negative); Blood Urine Negative (Negative); Color Urine Dark Yellow (Yellow); Glucose Urine UA Negative (Negative); Ketones Urine Negative (Negative); Leukocyte Esterase Ur Negative LEU/UL (Negative); Nitrate Urine Negative (Negative); Non Pathogenic Casts 0-2; Protein Urine Trace mg/dL (Negative); RBC Urine 0-2 /hpf (0-2); Squamous Epithelial Cell Urine None Seen /hpf (Few); Urobilinogen Urine 0.2 mg/dL (<2.0); WBC Urine 0-5 /hpf (0-3)
[2024-03-22 10:26] LABS: Alanine Aminotransferase 21 U/L (6-35); Albumin Level 4.7 g/dL (3.5-5.1); Alkaline Phosphatase 61 U/L (38-126); Anion Gap 9 mmol/L (4-12); Aspartate Amino Transferase 28 U/L (14-36); Bilirubin,Total 0.7 mg/dL (0.2-1.3); Blood Urea Nitrogen 25 mg/dL (7-17); Calcium 10.2 mg/dL (8.4-10.2); Carbon Dioxide 30 mmol/L (22-30); Chloride 103 mmol/L (98-107); Cholesterol 184 mg/dL (0-200); Estimated Glomerular Filt Rate 58; Glucose 98 mg/dL (65-110); HDL Direct 65 mg/dL; Magnesium 2.5 mg/dL (1.6-2.3); Potassium 5.2 mmol/L (3.4-5.0); Sodium 142 mmol/L (137-145); Triglycerides 62 mg/dL (<150)
[2024-03-22 10:37] LABS: LDL Cholesterol Direct 87 mg/dL
[2024-03-22 10:52] LABS: Hemoglobin A1C 5.9 % (<5.7)
[2024-03-22 10:55] LABS: Thyroid Stimulating Hormone < 0.015 uIU/mL (0.465-4.680)
[2024-03-22 11:06] LABS: Free T4 Free Thyroxine 1.24 ng/dL (0.78-2.19); Vitamin D 25 Hydroxy 58.9 ng/mL
== END 2024-03-22 09:06 | disposition home or self-care (01) ==
PROVIDERS: PCP Internal Medicine; Visit Provider Internal Medicine
DX: S12.110A Anterior displaced Type II dens fracture, initial encounter for closed fracture (principal); E78.2 Mixed hyperlipidemia; R79.89 Other specified abnormal findings of blood chemistry; E78.5 Hyperlipidemia, unspecified; E55.9 Vitamin D deficiency, unspecified; Z13.1 Encounter for screening for diabetes mellitus; G95.9 Disease of spinal cord, unspecified; M54.2 Cervicalgia; Z79.899 Other long term (current) drug therapy
CPT/HCPCS: 36415; 72050; 80053; 80061; 81001; 82306; 83036; 83735; 84439; 84443; 85025

== ENCOUNTER 2024-07-25 08:56 | Outpatient (CLI) | payer MEDICARE, SELFPAY ==
--- OUTSIDE RECORDS SUMMARY | 2024-07-25 09:27 | XMS_ITS | Clinical Summary ---
Author Organization [facility] [address] Address [address] [place] [address] Care Team Providers Care Propagator Name Role Phone Ayo Buckner MD Primary Care Provider [phone] Allergies No known active allergies Medications alendronate (FOSAMAX) 70 mg tablet Take 1 tablet (70 mg total) by mouth every 7 days Take in the morning with a full glass of water, on an empty stomach, and do not take anything else by mouth or lie down for the next 30 min. Active cholecalciferol (VITAMIN D-3) 5,000 unit capsule Take 1 capsule (5,000 Units total) by mouth daily Active BIOTIN ORAL Take by mouth Acti ve aspirin 81 mg enteric coated tablet Take 1 tablet (81 mg total) by mouth daily Active [id number]- Lmfolate-algal 27 mg iron-1.13 mg-581.92 mg capsule Take by mouth Active Nexlizet 180-10 mg tablet 3 Active escitalopram (LEXAPRO) 10 mg tablet Take 1 tablet (10 mg total) by mouth daily 4 Active magnesium oxide (MAG-OX) 400 mg (241.3 mg elemental magnesium) tablet Take 1 tablet (400 mg total) by mouth 2 (two) times a day 4 Active vit B comp with C-calcium carb 300 mg-150 mg calcium tablet Take by mouth A ctive cyanocobalamin (Vitamin B-12) 50 mcg tabletIndication s:Prevention of Vitamin B12 Deficiency Take 1 tablet (50 mcg total) by mouth daily Active UNABLE TO FIND Gummy for GI Ac tive midodrine (PROAMATINE) 5 mg tabletIndication s:Orthostatic hypotension Take 2 tablets (10 mg total) by mouth 3 (three) times a day 540 tablet 1 Active Active Problems Problem Noted Date Diagnosed Date PAC (premature atrial contraction) 07/21/2023 Orthostatic hypotension 07/30/2022 Syncope and collapse 03/25/2022 Nonrheumatic aortic valve stenosis 06/09/2021 Nonrheumatic mitral valve regurgitation 06/10/19 MVP (mitral valve prolapse) 06/09/2021 Hyperlipidemia 06/09/2021 Abnormal stress test 06/09/2021 Atypical chest pain 06/09/2021 MCQUEEN (dyspnea on exertion) 06/09/2021 Abnormal ECG 06/09/2021 Encounters Date Type Department Care Team Description 05/31/2024 Telephone [facility] Medical [facility] Cardiology [address] [place] [address] [place] [phone] Xavi Gonzalez MD 05/22/2024 9:30 AM CDT Office Visit [facility] Cardiology [address] [place] [address] [place] [address] [phone] Billie Cormier NP Orthostatic hypotension (Primary Dx); Leg swelling 05/10/2024 Telephone [facility] Cardiology [address] [place] [address] [place] [phone] Xavi Gonzalez MD from Last 3 Months Medical History Medical History Date Comments Hyperlipidemia Anxiety Family History Medical History Relation Name Comments Hypertension Father pacemaker Father Cancer Mother Relation Name Status Comments Father (Age 90) Mother (Age 99) Social History Tobacco Use Types Packs/Day Years Used Date Smoking Tobacco: Former Cigarettes Smokeless Tobacco: Never Tobacco Cessation:Counseling Given: Not Answered AUDIT-C Answer Date Recorded Q1: How often do you have a drink containing alc ohol? 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 Gender Identity Not on file Sexual Orientation Not on file Obstetrics History Last Filed Vital Signs Vital Sign Reading Time Taken Comments Blood Pressure 80/46 05/22/2024 9:29 AM CDT Pulse 74 05/22/2024 9:29 AM CDT Temperature - - Respiratory Rate - - Oxygen Saturation 93% 05/22/2024 9:29 AM CDT Inhaled Oxygen Concentration - - Weight 61.3 kg (135 lb 1.6 oz) 05/22/2024 9:29 A M CDT Height 165.1 cm (5' 5) 05/22/2024 9:29 AM CDT Body Mass Index 22.48 05/22/2024 9:29 AM CDT Plan of Treatment Health Maintenance Due Date Last Done Comments Depression Screening 1945 Fall Risk Assessment 1945 Osteoporosis Screening-Bone Density Scan 1945 DTaP/Tdap/Td Vaccine (1 - Tdap) 06/18/1955 Hepatitis B Screening 1962 Pneumococcal vaccine 65+ (1 of 1 - PCV) 1994 Zoster Vaccine (1 of 2) 1994 Well Visit 65+ 2009 Covid-19 Vaccine (5 - 2023-2 5 season) 2023 11/13/2021, 11/21/2020, 04/25/2020, Additional history exists Influenza Vaccine (Season Ended) 2024 11/21/2019, 11/15/2017, 12/13/2016, Additional history exists Insurance MEDICARE ADVANTAGE [facility] [employer] Care Teams Propagator Relationship Specialty Start Date End Date Ayo Buckner MD [address] [facility] [address] [place] [address] PCP - General Internal Medicine 06/02/21
--- OUTSIDE RECORDS SUMMARY | 2024-07-25 09:27 | XMS_ITS | Referral Summary ---
Author Organization [place] [address] [address] [place] [phone] Care Team Providers Care Ethnographic Materials Conservator Name Role Phone Ayo Buckner MD Primary Care Provider [phone] Encounters Date Type Department Care Team Description 05/31/2024 Telephone [facility] Cardiology [address] [place] [address] [address] [place] [address] Xavi Gonzalez MD 05/22/2024 9:30 AM CDT Office Visit [facility] Cardiology [address] [place] [address] [address] [place] [address] Billie Cormier NP Orthostatic hypotension (Primary Dx); Leg swelling 05/10/2024 Telephone [facility] Cardiology [address] [place] [phone] Xavi Gonzalez MD from Last 3 Months Allergies No known active allergies Medications alendronate [...] (81 mg total) by mouth daily Active jopetljv95-hetu- Lmfolate-algal 27 mg iron-1.13 mg-581.92 mg capsule [...] (three) times a day 540 tablet 1 5 Active Active Problems Problem Noted Date Diagnosed Date PAC (premature atrial contraction) 07/21/2023 Orthostatic hypotension 07/30/2022 Syncope and collapse 03/25/2022 Nonrheumatic aortic valve stenosis 06/09/2021 Nonrheumatic mitral valve regurgitation 06/10/19 MVP (mitral valve prolapse) 06/09/2021 Hyperlipidemia 06/09/2021 Abnormal stress test 06/09/2021 Atypical chest pain 06/09/2021 MCQUEEN (dyspnea on exertion) 06/09/2021 Abnormal ECG 06/09/2021 Social History Tobacco Use Types Packs/Day Years [...] on file 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 Gender Identity Not on file Sexual Orientation Not on file Last Filed Vital Signs Vital Sign Reading [...] 05/22/2024 9:29 AM CDT Plan of Treatment Not on file Insurance MEDICARE AD[facility]ANTAGE [facility] MEDICARE Address: [address] [phone] [facility] MEDICARE ADVANTAGE [facility] Address: [address] [address] [place] [address] [facility] MEDICARE ADVANTAGE Care Teams Ethnographic Materials Conservator Relationship Specialty Start Date End Date Ayo Buckner MD [address] INTERNAL MEDICINE [place] [id number] PCP - General Internal Medicine 06/02/21
--- OUTSIDE RECORDS SUMMARY | 2024-07-25 09:27 | XMS_ITS | Clinical Summary ---
Author Organization [facility] Address [address] [place] [address] Care Team Providers Care Executive Relations Specialist Name Role Phone Dante Rodriguez MD Primary Care Provider [phone] Source Comments [facility],non-owned Affiliates and Associated Physician Practices is amultiple site organization consisting of ambulatory clinics and hospital sitesin [place], [place], [place] and [place]. This disclosure is being madepursuant to the Care Everywhere program and may not contain all information available regarding this patient. Last updated 17.[facility] Immunizations Immunization Administration Dates Next Due INFLUENZA VACCINE, HIGH-DOSE , QUADR. (FLUZONE HIGH-DOSE QUADRIVALENT; 65Y+), 0.7 ML (HD-IIV4) 11/21/2019,11/27/2015 Social History Tobacco Use Types Packs/Day Years Used Date Smoking Tobacco: Never Assessed Comments Unknown Sex and Gender Information Value Date Recorded Sex Assigned at Not on file Legal Sex Female 12:27 PM CDT Gender Identity Not on file Sexual Orientation [...] VACCINE ( - 2023-2 5 season) 2023 DEPRESSION SCREENING 02/08/2024 INFLUENZA VACCINE (Season Ended) 2024 11/21/2019, 11/27/2015 HEPATITIS B VACCINE Aged Out No longe r eligible based on patient's age to complete this topic HIB VACCINE Aged Out No longer eligi ble based on patient's age to complete this topic HPV VACCINE Aged Out No longer eligi ble based on patient's age to complete this topic MENINGOCOCCAL (Group B) VACCINE SHARED DECISION-MAKING Aged Out No longer eligible based on patient's age to complete this topic MENINGOCOCCAL GROUPS A/C/Y/W VACCINE Aged Out No longer eligible b ased on patient's age to complete this topic Insurance [id number] MANAGED MEDICARE ADV Care Teams Executive Relations Specialist Relationship Specialty Start Date End Date Dante Rodriguez MD [address] [facility] [address] PCP - General Internal Medicine 11/27/15
[2024-07-25 09:33] LABS: Basophils Percent Auto 0.5 % (0.2-1.2); Eosinophils Absolute Auto 0.2 K/mm3 (0-0.3); Eosinophils Percent Auto 2.7 % (0-4.4); Hemoglobin 12.6 g/dL (12.0-15.0); Immature Granulocyte Absolute 0.02 K/mm3 (0.00-0.031); Immature Granulocyte Percent A 0.3 % (0-0.5); Lymphocytes Absolute Auto 1.03 K/mm3 (0.9-3.2); Lymphocytes Percent Auto 17.7 % (18.3-44.2); Mean Corpuscular HGB Conc 32.3 g/dl (32-36); Mean Corpuscular Hemoglobin 29.2 pg (26-34); Mean Corpuscular Volume 90.5 fl (80-100); Mean Platelet Volume 9.7 fl (7.4-10.4); Monocytes Absolute Auto 0.5 K/mm3 (0.1-0.6); Monocytes Percent Auto 7.9 % (2.6-8.5); Neutrophils Absolute Auto 4.1 K/mm3 (1.3-6.7); Neutrophils Percent Auto 70.9 % (45.5-73.1); Platelet Count Result 247 k/mm3 (150-375); Red Blood Count 4.31 M/mm3 (4.2-5.4); White Blood Count 5.8 K/mm3 (4.5-10.0)
[2024-07-25 10:24] LABS: Alanine Aminotransferase 20 U/L (6-35); Albumin Level 4.7 g/dL (3.5-5.1); Alkaline Phosphatase 56 U/L (38-126); Anion Gap 6 mmol/L (4-12); Aspartate Amino Transferase 34 U/L (14-36); Bilirubin,Total 0.6 mg/dL (0.2-1.3); Blood Urea Nitrogen 32 mg/dL (7-17); Calcium 10.1 mg/dL (8.4-10.2); Carbon Dioxide 28 mmol/L (22-30); Chloride 105 mmol/L (98-107); Cholesterol 200 mg/dL (0-200); Estimated Glomerular Filt Rate 52; Glucose 106 mg/dL (65-110); HDL Direct 61 mg/dL; Magnesium 2.3 mg/dL (1.6-2.3); Potassium 4.7 mmol/L (3.4-5.0); Sodium 139 mmol/L (137-145); Total Protein 7.9 g/dL (6.3-8.2); Triglycerides 88 mg/dL (<150)
[2024-07-25 10:36] LABS: LDL Cholesterol Direct 94 mg/dL
[2024-07-25 11:02] LABS: Thyroid Stimulating Hormone 0.021 uIU/mL (0.465-4.680)
[2024-07-25 14:59] LABS: Free T4 Free Thyroxine 1.09 ng/dL (0.78-2.19)
== END 2024-07-25 08:57 | disposition home or self-care (01) ==
LOC: ANHLAB 08:57
PROVIDERS: PCP Internal Medicine; Visit Provider Internal Medicine
DX: Z79.899 Other long term (current) drug therapy (principal); R79.89 Other specified abnormal findings of blood chemistry; E78.2 Mixed hyperlipidemia
CPT/HCPCS: 36415; 80053; 80061; 83735; 84439; 84443; 85025

== ENCOUNTER 2024-08-28 10:20 | Outpatient (CLI) | payer MEDICARE, SELFPAY ==
--- OUTSIDE RECORDS SUMMARY | 2024-08-28 10:28 | XMS_ITS | Clinical Summary ---
Author Organization [facility] [address] Address [address] [place] [address] Care Team Providers Care Final Tester Name Role Phone Ayo Buckner MD Primary Care Provider [phone] Allergies No known active allergies Medications alendronate [...] (81 mg total) by mouth daily Active suvrsmsn83-cvag- Lmfolate-algal 27 mg iron-1.13 mg-581.92 mg capsule [...] times a day 540 tablet 1 Active UNABLE TO FIND Fiber Gummy Act preethi fludrocortisone 0.1 mg tabletIndication s:Syncope and collapse,Orthost atic hypotension Take 1 tablet (0.1 mg total) by mouth daily 30 tablet 11 5 08/03/19 26 Active Active Problems Problem Noted Date Diagnosed Date PAC (premature atrial contraction) 07/21/2023 Orthostatic hypotension 07/30/2022 Syncope and collapse 03/25/2022 Nonrheumatic aortic valve stenosis 06/09/2021 Nonrheumatic mitral valve regurgitation 06/10/19 MVP (mitral valve prolapse) 06/09/2021 Hyperlipidemia 06/09/2021 Abnormal stress test 06/09/2021 Atypical chest pain 06/09/2021 MCQUEEN (dyspnea on exertion) 06/09/2021 Abnormal ECG 06/09/2021 Encounters Date Type Department Care Team Description 08/03/2024 9:15 AM CDT Ancillary Procedure [facility] Cardiology at [address] [place] [phone] Nonrheumatic mitral valve regurgitation; Nonrheumatic aortic valve stenosis; MVP (mitral valve prolapse); Syncope and collapse; Orthostatic hypotension 08/03/2024 Results Follow-Up [facility] Cardiology [address] [place] [address] [place] [phone] Xavi Alvarado MD Transthoracic Echo (TTE) Complete W Doppler/CF 08/02/2024 1:15 PM CDT Office Visit [facility] Cardiology [address] [place] [address] [place] [phone] Xavi Alvarado MD Nonrheumatic mitral valve regurgitation (Primary Dx); Nonrheumatic aortic valve stenosis; MVP (mitral valve prolapse); Syncope and collapse; Orthostatic hypotension 05/31/2024 Telephone [facility] Cardiology [address] [place] [address] [place] [phone] Xavi Alvarado MD from Last 3 Months Medical History [...] on file 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 Gender Identity Not on file Sexual Orientation Not on file Obstetrics History Last Filed Vital Signs Vital Sign Reading Time Taken Comments Blood Pressure 102/60 08/02/2024 12:53 PM CDT Pulse 66 08/02/2024 12:53 PM CDT Temperature - - Respiratory Rate - - Oxygen Saturation 97% 08/02/2024 12:53 PM CDT Inhaled Oxygen Concentration - - Weight 61.4 kg (135 lb 6.4 oz) 08/02/2024 12:53 PM CDT Height 165.1 cm (5' 5) 08/02/2024 12:53 PM CDT Body Mass Index 22.53 08/02/2024 12:53 PM CDT Plan of Treatment Health Maintenance Due Date Last Done Comments Depression Screening 1945 Fall Risk Assessment 1945 Osteoporosis Screening-Bone Density Scan 1945 DTaP/Tdap/Td Vaccine (1 - Tdap) 06/18/1955 Hepatitis B Screening 1962 Pneumococcal vaccine 65+ (1 of 1 - PCV) 1994 Zoster Vaccine (1 of 2) 1994 Well Visit 65+ 2009 Covid-19 Vaccine (2023-2 5 season) 2023 11/13/2021, 11/21/2020, 04/25/2020, Additional history exists Influenza Vaccine (#1) 2024 , 11/15/2017, 12/13/2016, Additional history exists Procedures Procedure Name Priority Date/Time Associated Diagnosis Comments TRANSTHORACIC ECHO (TTE) COMPLETE W DOPPLER/CF WO CONTRAST Routine 08/03/2024 9:25 AM CDT Nonrheumatic mitral valve regurgitation Nonrheumatic aortic valve stenosis MVP (mitral valve prolapse) Syncope and collapse Orthostatic hypotension from Last 3 Months Results * TRANSTHORACIC ECHO (TTE) COMPLETE W DOPPLER/CF WO CONTRAST (08/03/2024 9:25 AM CDT) Estimated EF 65-70 % CONS SCIMAGE EF Mod BP 69 % CONS SCIMAGE Anatomical Region Laterality Modality Ultrasound 08/03/2024 9:07 AM CDT Narrative 08/03/2024 10:16 AM CDT [facility] Cardiology [address], [address], [place] [address] [phone] [phone] Echocardiographic Report Patient Name: AGNES SKINNER : 1945 Study Date: 08/03/2024 9:07:23 AM Gender: F [place] Boatman: NIDIA Location: [facility] Ref Provider: XAVI ALVARADO Height(Cm): 165 BSA: 1.67 Weight(Kg): 61.2 Heart Rate: 56 BP: 102 / 60 Quality: Good Order Provider: XAVI ALVARADO PROCEDURES: Echocardiographic Report: Transthoracic echocardiogram with complete 2D, M-Mode, and color Doppler examination. With Strain Analysis. INDICATIONS: I34.0 Nonrheumatic mitral (valve) insufficiency, I35.0 Nonrheumatic aortic (valve) stenosis, I34.1 Nonrheumatic mitral (valve) prolapse, R55 Syncope and collapse, and I95.1 Orthostatic hypotension. MEASUREMENTS: 2D/MM Value Range Doppler Value Range EF Mod BP 69 % [ 54 - 74 ] RHYS Vmax 2.12 cm2 [ 2.00 - 4.00 ] EF Teich MM 70 % [ 54 - 74 ] AV Mean PG 6 mmHg Estimated EF 65-70 % AV Peak Jose 1.81 m/s [ 1.00 - 1.70 ] LVIDd 2D 4.62 cm [ 3.80 - 5.20 ] AV Peak PG 13 mmHg LVIDd MM 5.73 cm [ 3.80 - 5.20 ] AV VTI 34.39 cm LVIDs 2D 3.43 cm [ 2.20 - 3.50 ] LVOT Diam 1.99 cm [ 1.70 - 2.10 ] LVIDs MM 3.43 cm [ 2.20 - 3.50 ] LVOT Peak Jose 1.12 m/s [ 0.70 - 1.10 ] LVPWd 2D 0.91 cm [ 0.60 - 0.90 ] LVOT VTI 25.48 cm LVPWd MM 1.08 cm [ 0.60 - 0.90 ] MV E Peak Jose 0.66 m/s [ 0.60 - 1.30 ] IVSd 2D 1.04 cm [ 0.60 - 0.90 ] MV A Peak Jose 1.01 m/s [ 1.00 - 1.20 ] IVSd MM 0.95 cm [ 0.60 - 0.90 ] MV Decel Time 271 msec [ 104 - 258 ] LA Dimension MM 3.78 cm [ 2.70 - 3.80 ] PV Peak Jose 1.09 m/s [ 0.40 - 0.80 ] AoR Diam MM 3.19 cm [ 2.70 - 3.70 ] TR Peak Jose 2.63 m/s [ 1.00 - 2.80 ] LA Volume Index 29 cc/m2 [ 16 - 34 ] TR Peak PG 28 mmHg ACS MM 1.97 cm RVSP 36.00 mmHg [ 10.00 - 36.00 ] Lateral E` 0.04 m/s [ 0.10 - 0.15 ] E/E` 18 2D/MM Value Range Doppler Value Range - FINDINGS: Interpretation Site: Exam was interpreted at [facility]. Left Ventricle: Normal left ventricular systolic function. No focal wall motion abnormalities. Mild concentric left ventricular hypertrophy. Left ventricle cavity is upper limits of normal in size. Impaired diastolic relaxation Grade I. Ejection fraction is measured at 69 %. Ejection Fraction is visually estimated to be 65-70 %. Global Longitudinal Strain is -19 %. GLS is normal. Right Ventricle: Normal right ventricular size. Normal right ventricular systolic function. Left Atrium: There is mild enlargement of left atrium. Right Atrium: The right atrium is normal in size. Atrial Septum: Normal atrial septum. Mitral Valve: Mild mitral annular calcification. Mild mitral valve prolapse involving the posterior mitral valve. Mild to moderate mitral valve regurgitation. There is no hemodynamically significant mitral stenosis by Doppler. Aortic Valve: No evidence of hemodynamically significant aortic stenosis by Doppler. Aortic cusps appear mildly calcified. Trileaflet aortic valve. Mild aortic valve regurgitation. Tricuspid Valve: Normal appearance of the tricuspid valve. Mild pulmonary hypertension based on right ventricular systolic pressure. Estimated peak RVSP is 36 mmHg. Mild tricuspid regurgitation. Pulmonic Valve: Normal appearance of the pulmonic valve. No pulmonic stenosis. Mild pulmonic regurgitation. Pericardium: Normal pericardium with no significant pericardial effusion. Aorta: No aortic root dilation. IVC: Normal size and normal respiratory collapse consistent with normal right atrial pressure (<5 mmHg). CONCLUSIONS: Normal left ventricular systolic function. No focal wall motion abnormalities. Mild concentric left ventricular hypertrophy. Left ventricle cavity is upper limits of normal in size. Impaired diastolic relaxation Grade I. Ejection fraction is measured at 69 %. Ejection Fraction is visually estimated to be 65-70 %. Global Longitudinal Strain is -19 %. GLS is normal. There is mild enlargement of left atrium. Mild mitral annular calcification. Mild mitral valve prolapse involving the posterior mitral valve. Mild to moderate mitral valve regurgitation. Aortic cusps appear mildly calcified. Mild aortic valve regurgitation. Mild pulmonary hypertension based on right ventricular systolic pressure. Estimated peak RVSP is 36 mmHg. Mild tricuspid regurgitation. Mild pulmonic regurgitation. Normal sinus rhythm. Electronically Signed By: Xavi Alvarado MD 08/03/2024 10:15:34 AM CDT Procedure Note Xavi Alvarado MD - 08/03/2024 [facility] Medical Group Cardiology [address], [address], [place] [address] [phone] P:[phone] Echocardiographic Report Patient Name: AGNES SKINNER : 1945 Study Date: 08/03/2024 9:07:23 AM Gender: F [place] Boatman: NIDIA Location: [facility] Ref Provider: XAVI ALVARADO Height(Cm): 165 BSA: 1.67 Weight(Kg): 61.2 Heart Rate: 56 BP: 102 / 60 Quality: Good Order Provider: XAVI ALVARADO PROCEDURES: Echocardiographic Report: Transthoracic echocardiogram with complete 2D, M-Mode, and color Dopplerexamination. With Strain Analysis. INDICATIONS: I34.0 Nonrheumatic mitral (valve) insufficiency, I35.0 Nonrheumatic aortic(valve) stenosis, I34.1 Nonrheumatic mitral (valve) prolapse, R55 Syncope andcollapse, and I95.1 Orthostatic hypotension. MEASUREMENTS: 2D/MM Value Range Doppler ValueRange EF Mod BP 69 % [ 54 - 74 ] RHYS Vmax 2.12cm2 [ 2.00 - 4.00 ] EF Teich MM 70 % [ 54 - 74 ] AV Mean PG 6mmHg Estimated EF 65-70 % AV Peak Jose 1.81m/s [ 1.00 - 1.70 ] LVIDd 2D 4.62 cm [ 3.80 - 5.20 ] AV Peak PG 13mmHg LVIDd MM 5.73 cm [ 3.80 - 5.20 ] AV VTI 34.39cm LVIDs 2D 3.43 cm [ 2.20 - 3.50 ] LVOT Diam 1.99 cm[ 1.70 - 2.10 ] LVIDs MM 3.43 cm [ 2.20 - 3.50 ] LVOT Peak Jose 1.12m/s [ 0.70 - 1.10 ] LVPWd 2D 0.91 cm [ 0.60 - 0.90 ] LVOT VTI 25.48cm LVPWd MM 1.08 cm [ 0.60 - 0.90 ] MV E Peak Jose 0.66m/s [ 0.60 - 1.30 ] IVSd 2D 1.04 cm [ 0.60 - 0.90 ] MV A Peak Jose 1.01m/s [ 1.00 - 1.20 ] IVSd MM 0.95 cm [ 0.60 - 0.90 ] MV Decel Time 271msec [ 104 - 258 ] LA Dimension MM 3.78 cm [ 2.70 - 3.80 ] PV Peak Jose 1.09m/s [ 0.40 - 0.80 ] AoR Diam MM 3.19 cm [ 2.70 - 3.70 ] TR Peak Jose 2.63m/s [ 1.00 - 2.80 ] LA Volume Index 29 cc/m2 [ 16 - 34 ] TR Peak PG 28mmHg ACS MM 1.97 cm RVSP 36.00mmHg [ 10.00 - 36.00 ] Lateral E` 0.04 m/s [ 0.10 - 0.15 ] E/E` 18 2D/MM Value Range Doppler ValueRange - FINDINGS: Interpretation Site: Exam was interpreted at [facility]. Left Ventricle: Normal left ventricular systolic function. No focal wall motionabnormalities. Mild concentric left ventricular hypertrophy. Left ventricle cavity is upperlimits of normal in size. Impaired diastolic relaxation Grade I. Ejection fraction ismeasured at 69 %. Ejection Fraction is visually estimated to be 65-70 %. Global LongitudinalStrain is -19 %. GLS is normal. Right Ventricle: Normal right ventricular size. Normal right ventricular systolicfunction. Left Atrium: There is mild enlargement of left atrium. Right Atrium: The right atrium is normal in size. Atrial Septum: Normal atrial septum. Mitral Valve: Mild mitral annular calcification. Mild mitral valve prolapse involvingthe posterior mitral valve. Mild to moderate mitral valve regurgitation. There is nohemodynamically significant mitral stenosis by Doppler. Aortic Valve: No evidence of hemodynamically significant aortic stenosis by Doppler.Aortic cusps appear mildly calcified. Trileaflet aortic valve. Mild aortic valveregurgitation. Tricuspid Valve: Normal appearance of the tricuspid valve. Mild pulmonary hypertensionbased on right ventricular systolic pressure. Estimated peak RVSP is 36 mmHg. Mildtricuspid regurgitation. Pulmonic Valve: Normal appearance of the pulmonic valve. No pulmonic stenosis. Mildpulmonic regurgitation. Pericardium: Normal pericardium with no significant pericardial effusion. Aorta: No aortic root dilation. IVC: Normal size and normal respiratory collapse consistent with normal rightatrial pressure (<5 mmHg). CONCLUSIONS: Normal left ventricular systolic function. No focal wall motionabnormalities. Mild concentric left ventricular hypertrophy. Left ventricle cavity is upperlimits of normal in size. Impaired diastolic relaxation Grade I. Ejection fraction ismeasured at 69 %. Ejection Fraction is visually estimated to be 65-70 %. Global LongitudinalStrain is -19 %. GLS is normal. There is mild enlargement of left atrium. Mild mitral annular calcification. Mild mitral valve prolapse involvingthe posterior mitral valve. Mild to moderate mitral valve regurgitation. Aortic cusps appear mildly calcified. Mild aortic valve regurgitation. Mild pulmonary hypertension based on right ventricular systolic pressure.Estimated peak RVSP is 36 mmHg. Mild tricuspid regurgitation. Mild pulmonic regurgitation. Normal sinus rhythm. Electronically Signed By: Xavi Alvarado MD 08/03/2024 10:15:34 AM CDT Xavi Alvarado MD CV ECHO PROCEDURES Final Result from Last 3 Months Insurance UHC MEDICARE ADVANTAGE [facility] MEDICARE ADVANTAGE [facility] MEDICARE ADVANTAGE Care Teams Final Tester Relationship Specialty Start Date End Date Ayo Buckner MD [address] INTERNAL MEDICINE [place], [place] [id number] PCP - General Internal Medicine 06/02/21
--- OUTSIDE RECORDS SUMMARY | 2024-08-28 10:29 | XMS_ITS | Clinical Summary ---
Author Organization [facility] Address [address] [place] [address] Care Team Providers Care Oxygen Equipment Preparer Name Role Phone Dante Rodriguez MD Primary Care Provider [phone] Source Comments [facility],non-owned Affiliates and Associated Physician Practices is amultiple site organization consisting of ambulatory clinics and hospital sitesin [place], [place], [place] and [place]. This disclosure is being madepursuant to the Care Everywhere program and may not contain all information available regarding this patient. Last updated 17.[facility] Immunizations Immunization Administration Dates Next Due [...] season) 2023 DEPRESSION SCREENING 02/08/2024 INFLUENZA VACCINE (#1) 2024 0, 11/27/2015 HEPATITIS B VACCINE Aged Out No [...] patient's age to complete this topic Insurance MANAGED MEDICARE ADV Care Teams Oxygen Equipment Preparer Relationship Specialty Start Date End Date Dante Rodriguez MD [address] [facility] [address] [address] PCP - General Internal Medicine 11/27/15
--- OUTSIDE RECORDS SUMMARY | 2024-08-28 10:29 | XMS_ITS | Encounter Summary ---
Author Organization [facility] Address [address] [place] [address] Care Team Providers Care Drupal Php Developer Name Role Phone Ayo Buckner MD Primary Care Provider [phone] Encounter Details Date Type Department Care Team (Latest Contact Info) Description 08/03/2024 Results Follow-Up [facility] Cardiology [address] [place] [address] Xavi Gonzalez MD [address] [facility] [address] [place] [address] Transthoracic Echo (TTE) Complete W Doppler/CF Social History Tobacco Use Types Packs/Day Years Used Date Smoking Tobacco: Former Cigarettes Smokeless Tobacco: Never AUDIT-C Answer Date Recorded Q1: How often do you have a drink containing alc ohol? 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
--- OUTSIDE RECORDS SUMMARY | 2024-08-28 10:29 | XMS_ITS | Referral Summary ---
Author Organization [place] [address] [address] [place] [phone] Care Team Providers Care Assistant Women'S Soccer Coach Name Role Phone Ayo Buckner MD Primary Care Provider [phone] Encounters Date Type Department Care Team Description 08/03/2024 Results Follow-Up [facility] Cardiology [address] [place] [address] [address] [place] [phone] Xavi Alvarado MD Transthoracic Echo (TTE) Complete W Doppler/CF 08/03/2024 9:15 AM CDT Ancillary Procedure [facility] Cardiology at [address] [place] [address] Nonrheumatic mitral valve regurgitation; Nonrheumatic aortic valve stenosis; MVP (mitral valve prolapse); Syncope and collapse; Orthostatic hypotension 08/02/2024 1:15 PM CDT Office Visit [facility] Cardiology [address] [place] [address] [address] [place] [phone] Xavi Alvarado MD Nonrheumatic mitral valve regurgitation (Primary Dx); Nonrheumatic aortic valve stenosis; MVP (mitral valve prolapse); Syncope and collapse; Orthostatic hypotension 05/31/2024 Telephone [facility] Cardiology [address] [place] [address] [address] [place] [phone] Xavi Alvarado MD from Last 3 Months Allergies No [...] (81 mg total) by mouth daily Active -dxbb- Lmfolate-algal 27 mg iron-1.13 mg-581.92 mg capsule [...] a day 540 tablet 1 5 Active UNABLE TO FIND Fiber Gummy Act [...] on file 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 Left Ventricle: Normal left ventricular systolic function. [...] Procedure Note Xavi Alvarado MD - 08/03/2024 [facility] Cardiology [address] [facility], [address], [place] [address] P:[phone] P:[phone] Echocardiographic Report Patient Name: AGNES SKINNER : 1945 Study Date: 08/03/2024 9:07:23 AM Gender: F Head Lineman: Location: EDW Ref Provider: XAVI ALVARADO Height(Cm): [...] FINDINGS: Interpretation Site: Exam was interpreted at [facility]. Left Ventricle: Normal left ventricular systolic function. [...] Final Result from Last 3 Months Insurance MEDICARE ADVANTAGE [facility] MEDICARE Address: [place] [id number] [place] [id number] MEDICARE ADVANTAGE [facility] MEDICARE Address: [facility] [address] [place] [id number] UHC MEDICARE ADVANTAGE Care Teams Assistant Women'S Soccer Coach Relationship Specialty Start Date End Date Ayo Buckner MD [address] [facility] [address] [facility] [address] INTERNAL MEDICINE [place] [id number] PCP - General Internal Medicine 06/02/21
--- NOTE | 2024-09-18 14:24 | P.PCNPFT_ITS ---
PFT Procedure Performed PFT Procedure Performed Spirometry with Pre/Post Bronchodilator Plethysmography (Lung Vol) Diffusing Cap (DLCO) Flow Vol Loop PFT Interpretation This is a pulmonary function test with pre and post-bronchodilator spirometry, plethysmography and diffusing capacity. The test was performed and results interpreted in accordance with the 2019 and 2005 ATS/ERS Task Force guidelines respectively using the Global Lung Function Initiative-2012 reference equations. Patient demonstrated good effort and cooperation. Reproducibility criteria were met. The quality of the pre bronchodilator spirometry maneuver was Grade A and post bronchodilator spirometry maneuver was Grade A. Findings: Spirometry: There is a reproducible mid expiratory plateau or knee pattern in 3 of 3 pre bronchodilators and 3 of 3 post bronchodilator maneuvers which is not more pronounced in the post bronchodilator maneuvers. The contour in of the inspiratory flow tracing is normal. The pre bronchodilator FVC is 3.09 L, 110% predicted. The pre bronchodilator FEV1 is 2.25 L, 106% predicted. The pre bron chodilator FEV1: FVC ratio is 73%. The post bronchodilator FVC is 3.01 L, representing a 3% decrease. The post bronchodilator FEV1 is 2.28 L, representing a 1% increase. The post bronchodilator FEV1: FVC ratio is 76%. Plethysmography: The total lung capacity is 5.08 L, 92% predicted. The functional residual capacity is 2.92 L, 92% predicted. The residual volume is 1.91 L, 75% predicted. Diffusing capacity: The diffusing capacity unadjusted for hemoglobin and carboxyhemoglobin is 15.7, 76% predicted. The diffusing capacity adjusted for alveolar volume is 4.01, 100% predicted. Impression: There is a reproducible knee pattern of the expiratory flow tracing which can be a normal variant or pathologic and has been attributed to a choke point section of the bronchial tree. The normal variant is more common in younger female patients, decreases with age and is more pronounced in the post bronchodilator efforts. The pattern has also been described with kyphosis, kyphoscoliosis, central obstructing mass, and post lung transplantation. Otherwise, the spirometry is normal without evidence of an obstructive abnormality. There is no significant improvement after inhaling a single dose of albuterol. The lung volumes are normal. The diffusing capacity is normal. There are no prior studies for comparison
--- NOTE | 2024-09-26 14:21 | P.PCNPFT_ITS ---
PFT Procedure Performed PFT Procedure Performed Spirometry with Pre/Post Bronchodilator Plethysmography (Lung Vol) Diffusing Cap (DLCO) Flow Vol Loop PFT Interpretation This is a pulmonary function test with pre and post-bronchodilator spirometry, plethysmography and diffusing capacity. The test was performed and results interpreted in accordance with the 2019 and 2005 ATS/ERS Task Force guidelines respectively using the Global Lung Function Initiative-2012 reference equations. Patient demonstrated good effort and cooperation. Reproducibility criteria were met. The quality of the pre bronchodilator spirometry maneuver was Grade A and post bronchodilator spirometry maneuver was Grade A. Findings: Spirometry: There is a mid expiratory plateau or knee pattern in 3 of 3 pre bronchodilator efforts and 2 of 3 post bronchodilator efforts. The contour in the inspiratory flow tracing is normal. The pre bronchodilator FVC is 3.09 L, 110% predicted. The pre bronchodilator FEV1 is 2.25 L, 106% predicted. The pre bronchodilator FEV1: FVC ratio 73%. The post bronchodilator FVC is 3.01 L, representing a 3% decrease. The post bronchodilator FEV1 is 2.28 L, representing a 1% increase. The post bronchodilator FEV1: FVC ratio is 76%. Plethysmography: The total lung capacity is 5.08 L, 92% predicted. The functional residual capacity is 2.92 L, 92% predicted. The residual volume is 1.91 L, 75% predicted. Diffusing capacity: The diffusing capacity unadjusted for hemoglobin and carbo xyhemoglobin is 15.7, 76% predicted. The diffusing capacity adjusted for alveolar volume is 4.01, 100% predicted. Impression: There is a reproducible knee pattern of the expiratory flow tracing which can be a normal variant or pathologic and has been attributed to a choke point section of the bronchial tree. The normal variant is more common in younger female patients, decreases with age and is more pronounced in the post bronchodilator efforts. The pattern has also been described with kyphosis, kyphoscoliosis, central obstructing mass, and post lung transplantation. Otherwise, the spirometry is normal without evidence of an obstructive abnormality. There is no significant improvement after inhaling a single dose of albuterol. The lung volumes are normal. The diffusing capacity is normal. There are no prior studies for comparison
== END 2024-08-28 10:21 | disposition home or self-care (01) ==
PROVIDERS: PCP Internal Medicine; Visit Provider Internal Medicine
DX: R06.02 Shortness of breath (principal)
CPT/HCPCS: 94060; 94726; 94729

== ENCOUNTER 2024-10-04 08:00 | Outpatient (CLI) | payer MEDICARE, SELFPAY ==
--- NOTE | ~2024-10-04 | CT_ITS ---
EXAMINATION: CT diagnostic chest wo con DATE: 10/04/2024 08:28 INDICATION: Solitary pulmonary nodule TECHNIQUE: Computed tomography (CT) of the chest was performed without intravenous contrast. The dose-length product was 135.53 mGy-cm. COMPARISON: CT chest abdomen pelvis 09/06/2023 FINDINGS: No enlarged mediastinal or hilar lymph nodes. Heart is mildly enlarged. There are coronary artery calcifications. There is a 2.5 cm cyst in the right lobe of the liver. Thoracic aorta is not aneurysmal. Tracheobronchial tree is patent. No pneumothorax. No pleural effusion. Dependent atelectasis. No pulmonary mass. Stable 5 mm groundglass nodule in the right upper lobe anteriorly. Mild biapical scarring. Bones appear osteopenic. Multilevel degenerative change in the visualized spine similar to the prior study. IMPRESSION: 1. Stable 5 mm groundglass nodule in the right upper lobe. A follow-up chest CT in 3 months is recommended. Reviewed, dictated and finalized at location Q.
== END 2024-10-04 08:01 | disposition home or self-care (01) ==
LOC: MICIMG 08:02
PROVIDERS: PCP Internal Medicine; Visit Provider Internal Medicine
DX: R91.1 Solitary pulmonary nodule (principal)
CPT/HCPCS: 71250

== ENCOUNTER 2024-11-30 08:58 | Outpatient (CLI) | payer MEDICARE, SELFPAY ==
--- OUTSIDE RECORDS SUMMARY | 2024-11-30 09:09 | XMS_ITS | Clinical Summary ---
Author Organization [facility] [address] Address [address] [place] [address] Care Team Providers Care Colon And Rectal Surgeon Name Role Phone Ayo Buckner MD Primary Care Provider [phone] Allergies No known active allergies Medications cholecalciferol (VITAMIN D-3) 5,000 unit capsule Take 1 capsule (5,000 Units total) by mouth daily Active BIOTIN ORAL Take 5,000 mcg by mouth daily Active [id number]-lmis- Lmfolate-algal 27 mg iron-1.13 mg-581.92 mg capsule Take 1 capsule by mouth daily Active Nexlizet 180-10 mg tablet Take 1 tablet by mouth daily 3 Active escitalopram (LEXAPRO) 10 mg tablet Take 1 tablet (10 mg total) by mouth daily 4 Active vit B comp with C-calcium carb 300 mg-150 mg calcium tablet Take 1 tablet by mouth daily Active fludrocortisone 0.1 mg tabletIndication s:Orthostatic hypotension,Sync ope and collapse Take 1 tablet (0.1 mg total) by mouth daily 90 tablet 3 5 09/21/19 26 Active midodrine (PROAMATINE) 5 mg tabletIndication s:Orthostatic hypotension Take 2 tablets (10 mg total) by mouth 3 (three) times a day 540 tablet 3 5 Active multivit-mineral s/folic acid (VITAFUSION WOMEN'S MULTI ORAL) Take 2 tablets by mouth 2 (two) times a day Active alendronate (FOSAMAX) 70 mg tablet Take 1 tablet (70 mg total) by mouth every 7 days Take in the morning with a full glass of water, on an empty stomach, and do not take anything else by mouth or lie down for the next 30 min. 11/09/19 Discontinu ed(Therapy completed) aspirin 81 mg enteric coated tablet Take 1 tablet (81 mg total) by mouth daily 11/09/19 Discontinu ed(Therapy completed) magnesium oxide (MAG-OX) 400 mg (241.3 mg elemental magnesium) tablet Take 1 tablet (400 mg total) by mouth 2 (two) times a day 11/09/19 Discontinu ed(Therapy completed) cyanocobalamin (Vitamin B-12) 50 mcg tabletIndication s:Prevention of Vitamin B12 Deficiency Take 1 tablet (50 mcg total) by mouth daily 11/09/19 Discontinu ed(Therapy completed) UNABLE TO FIND Gummy for GI 11/09/19 Discontinu ed(Therapy completed) UNABLE TO FIND Fiber Gummy 11/09/19 Discontinu ed(Therapy completed) Active Problems Problem Noted Date Diagnosed Date PAC (premature atrial contraction) 07/21/2023 Orthostatic hypotension 07/30/2022 Syncope and collapse 03/25/2022 Nonrheumatic aortic valve stenosis 06/09/2021 Nonrheumatic mitral valve regurgitation 06/10/19 MVP (mitral valve prolapse) 06/09/2021 Hyperlipidemia 06/09/2021 Abnormal stress test 06/09/2021 Atypical chest pain 06/09/2021 MCQUEEN (dyspnea on exertion) 06/09/2021 Abnormal ECG 06/09/2021 Encounters Date Type Department Care Team Description 11/09/2024 Telephone [facility] [address] [place] [address] [place] [phone] Renata Parkinson 11/08/2024 1:00 PM CDT Office Visit [facility] [address] [place] [phone] Aimee Chinchilla MD Cognitive complaints (Primary Dx) 10/01/2024 Telephone [facility] [address] [place] [phone] Xavi Gonzalez MD Med Refill 09/20/2024 1:30 PM CDT Office Visit [facility] at [address] [place] [address] Xavi Gonzalez MD MVP (mitral valve prolapse) (Primary Dx); Nonrheumatic aortic valve stenosis; Nonrheumatic mitral valve regurgitation; Orthostatic hypotension; Syncope and collapse; Mixed hyperlipidemia 09/20/2024 Orders Only [facility] at [address] [place] [phone] Provider, MD Viola from Last 3 Months Medical History Medical History Date Comments Hyperlipidemia Anxiety Family History Medical History Relation Name Comments Hypertension Father pacemaker Father Cancer Mother Relation Name Status Comments Father (Age 90) Mother (Age 99) Social History Tobacco Use Types Packs/Day Years Used Date Smoking Tobacco: Former Cigarettes Smokeless Tobacco: Never Tobacco Cessation:Counseling Given: Not Answered Alcohol Use Standard Drinks/Week Comments Yes 0 (1 standard drink = 0.6 oz pur e alcohol) AUDIT-C Answer Date Recorded Q1: How often do you have a drink containing alc ohol? Monthly or less 11/08/2024 Q2: How many drinks containi ng alcohol do you have on a typical day when you are drinking? 1 or 2 11/08/2024 Q3: How often do you have si x or more drinks on one occasion? Never 11/08/2024 Comments Unknown Sex and Gender Information Value Date Recorded Sex Assigned at Not on file Legal Sex Female 12:20 PM [employer] Gender Identity Not on file Sexual Orientation Not on file Obstetrics History Last Filed Vital Signs Vital Sign Reading Time Taken Comments Blood Pressure 122/78 11/08/2024 12:11 PM CDT Pulse 64 11/08/2024 12:11 PM CDT Temperature - - Respiratory Rate 16 11/08/2024 12:11 PM CDT Oxygen Saturation 94% 11/08/2024 12:11 PM CDT Inhaled Oxygen Concentration - - Weight 60.8 kg (134 lb) 11/08/2024 12:11 PM CDT Height 165.1 cm (5' 5) 11/08/2024 12:11 PM CDT Body Mass Index 22.3 11/08/2024 12:11 PM CDT Plan of Treatment Health Maintenance Due Date Last Done Comments Depression Screening 1944 Fall Risk Assessment 1945 Osteoporosis Screening-Bone Density Scan 1944 DTaP/Tdap/Td Vaccine (1 - Tdap) 06/18/1955 Hepatitis B Screening 1962 Pneumococcal vaccine 65+ (1 of 1 - PCV) 1994 Zoster Vaccine (1 of 2) 1994 Well Visit 65+ 2009 Covid-19 Vaccine (5 - 2024-2 6 season) 2024 11/13/2021, 11/21/2020, 04/25/2020, Additional history exists Influenza Vaccine (#1) 2024 , 11/15/2017, 12/13/2016, Additional history exists Insurance MEDICARE [employer] [facility] Address: [id number] [place] [address] [facility] Address: [address] [address] [place] [address] [place] [address] [facility] [employer] [facility] Address: [facility] [address] [place] [address] Care Teams Colon And Rectal Surgeon Relationship Specialty Start Date End Date Ayo Buckner MD PCP - General Internal Medicine 06/02/21
--- OUTSIDE RECORDS SUMMARY | 2024-11-30 09:10 | XMS_ITS | Clinical Summary ---
Author Organization [facility] Address [address] [place] [address] Care Team Providers Care Rn Appeals Name Role Phone Dante Rodriguez MD Primary Care Provider [phone] Source Comments [facility],non-owned Affiliates and Associated Physician Practices is amultiple site organization consisting of ambulatory clinics and hospital sitesin [place], [place], [place] and [place]. This disclosure is being madepursuant to the Care Everywhere program and may not contain all information available regarding this patient. Last updated 17.[facility] Immunizations Immunization Administration Dates Next Due [...] yrs (1 - 1-dose 75+ series) 06/18/2019 DEPRESSION SCREENING 02/08/2024 COVID-19 VACCINE (1 - 2023-2 5 season) 2024 INFLUENZA VACCINE (#1) 2024 0, 11/27/2015 HEPATITIS [...] topic Insurance MANAGED MEDICARE ADV Care Teams Rn Appeals Relationship Specialty Start Date End Date Dante Rodriguez MD [address] [facility] [address] [address] PCP - General Internal Medicine 11/27/15
[2024-11-30 10:49] LABS: Hemoglobin A1C 5.6 % (<5.7)
[2024-11-30 11:00] LABS: Alanine Aminotransferase 24 U/L (6-35); Albumin Level 4.9 g/dL (3.5-5.1); Alkaline Phosphatase 61 U/L (38-126); Anion Gap 10 mmol/L (4-12); Aspartate Amino Transferase 38 U/L (14-36); Bilirubin,Total 0.8 mg/dL (0.2-1.3); Blood Urea Nitrogen 23 mg/dL (7-17); Calcium 9.9 mg/dL (8.4-10.2); Carbon Dioxide 29 mmol/L (22-30); Chloride 101 mmol/L (98-107); Cholesterol 201 mg/dL (0-200); Estimated Glomerular Filt Rate 58; Glucose 98 mg/dL (65-110); HDL Direct 67 mg/dL; Potassium 4.0 mmol/L (3.4-5.0); Sodium 140 mmol/L (137-145); Total Protein 8.3 g/dL (6.3-8.2); Triglycerides 98 mg/dL (<150)
== END 2024-11-30 08:59 | disposition home or self-care (01) ==
LOC: ANHLAB 08:59
PROVIDERS: PCP Internal Medicine; Visit Provider Internal Medicine
DX: R73.03 Prediabetes (principal); E55.9 Vitamin D deficiency, unspecified; E78.2 Mixed hyperlipidemia; Z79.899 Other long term (current) drug therapy
CPT/HCPCS: 36415; 80053; 80061; 82306; 83036

== ENCOUNTER 2025-01-11 08:33 | Outpatient (CLI) | payer MEDICARE, SELFPAY ==
--- NOTE | ~2025-01-11 | CT_ITS ---
EXAMINATION:CT diagnostic chest wo con DATE: 01/11/2025 08:48 INDICATION: Solitary pulmonary nodule. TECHNIQUE: Computed tomography (CT) of the chest was performed without intravenous contrast. Automated exposure control and iterative reconstruction technique were employed. The dose-length product (DLP) was 138.49 mGy-cm. COMPARISON: Chest CT 10/04/24, 09/06/2023 FINDINGS: There is mild scarring at the lung apices. There is a 5 mm groundglass nodule in right upper lobe, stable from 09/06/2023, likely benign. There is a 7 mm nodule in superior segment left lower lobe, stable from 09/06/2023, likely benign. The lungs demonstrate mild atelectasis. No pleural effusion. There is a 4 mm nodule in left upper lobe, stable from 09/06/2023, likely benign. No pleural effusion. The heart size is normal. There are coronary artery calcifications. There is a trace pericardial effusion. There is a 2.5 cm cyst in the liver. There is severe cervical and thoracic spondylosis. There is mild chronic anterior wedging of multiple vertebral bodies. IMPRESSION: 1. Chronic pulmonary nodules, likely benign. Reviewed, dictated and finalized at location E. ING MANAGER
== END 2025-01-11 08:34 | disposition home or self-care (01) ==
LOC: MICIMG 08:34
PROVIDERS: PCP Internal Medicine; Visit Provider Internal Medicine
DX: R91.1 Solitary pulmonary nodule (principal)
CPT/HCPCS: 71250